=== PATIENT | female | born 1945 | race Caucasian/White ===

== ENCOUNTER → 2021-11-05 09:13 | Outpatient (REF) | payer MEDICARE, SELFPAY | LOC: ANHLAB 09:13 | PROVIDERS: PCP Internal Medicine; Visit Provider Nurse Practitioner | DX: C44.321 Squamous cell carcinoma of skin of nose (principal) | CPT/HCPCS: 88305 ==

== ENCOUNTER → 2021-12-14 07:01 | Outpatient (REF) | payer MEDICARE, SELFPAY | LOC: ANHLAB 07:01 | PROVIDERS: PCP Internal Medicine; Visit Provider Nurse Practitioner | DX: C44.321 Squamous cell carcinoma of skin of nose (principal); L90.5 Scar conditions and fibrosis of skin | CPT/HCPCS: 88305; 88331 ==

== ENCOUNTER 2022-08-16 09:00 | Outpatient (NON) | payer MEDICARE, SELFPAY | END 2022-08-16 09:01 | disposition home or self-care (01) | LOC: ANHLAB 08-18 10:52 | PROVIDERS: PCP Internal Medicine; Visit Provider Nurse Practitioner | DX: D49.2 Neoplasm of unspecified behavior of bone, soft tissue, and skin (principal) | CPT/HCPCS: 88305 ==

== ENCOUNTER 2024-10-16 16:09 | Outpatient (CLI) | payer MEDICARE, SELFPAY ==
--- NOTE | ~2024-10-16 | CT_ITS ---
EXAMINATION: CT sinus wo con DATE: 10/16/2024 16:35 INDICATION: Sinus polyps TECHNIQUE: Computed tomography (CT) of the paranasal sinuses was performed without intravenous contra st. The dose-length product was 299.51 mGy-cm.. Automated exposure control and iterative reconstructi on technique were employed. COMPARISON: None FINDINGS: There is cortical thickening of the left zygomatic arch, left maxillary sinus and inferior margin of the left orbit with associated surgical changes. These may represent posttraumatic change, although other considerations such as Paget's disease are considered. There is soft tissue opacificat ion of the left frontal, ethmoid and maxillary sinuses. The left ostiomeatal unit is not well visuali zed which may be postsurgical or related to erosive destruction. There is mild mucosal thickening of the right sphenoid sinus. Mastoids are pneumatized. IMPRESSION: 1. Moderate mucosal thickening of the left frontal, ethmoid, maxillary and right sphenoid sinuses wit h polypoid soft tissue involving the ethmoid sinus. Findings suggest chronic sinusitis with possible underlying polyps. 2: Ostiomeatal unit on the left is not well visualized, possibly postsurgical or related to erosive destruction. 3: Cortical thickening with increased trabeculation involving the left orbit, maxillary sinus and zyg omatic arch. Differential diagnosis includes postsurgical or posttraumatic change versus chronic infl ammatory change secondary to sinusitis. Differential diagnosis includes Paget's disease. Reviewed, dictated and finalized at location A. IMPRESSION: 1. Moderate mucosal thickening of the left frontal, ethmoid, maxillary and righ t sphenoid sinuses with polypoid soft tissue involving the ethmoid sinus. Findi ngs suggest chronic sinusitis with possible underlying polyps. 2: Ostiomeatal unit on the left is not well visualized, possibly postsurgical or related to erosive destruction. 3: Cortical thickening with increased trabeculation involving the left orbit, m axillary sinus and zygomatic arch. Differential diagnosis includes postsurgical or posttraumatic change versus chronic inflammatory change secondary to sinusi tis. Differential diagnosis includes Paget's disease.
--- OUTSIDE RECORDS SUMMARY | 2024-10-16 18:30 | XMS_ITS | Continuity of Care Document ---
Author Organization [facility] Address [address] [place] [address] Phone Care Team Providers Care First Breaker Feeder Name Role Phone Pagan OD, Olvin Unavailable Unavailable Procedures Procedure Date Eye Exam, New Patient Refraction BF Plastic Sphcyl T[place]ord To +/-4d .12-2d Frames Deluxe Tax - Medical Advance Directives Directive Yes / No Effective Date File Name No Information Encounters Encounter Description Practice Location Reason(s) For Visit Diagnoses Date Provider Providers Copied on Encounter [facility], [address] [place] [address] [address], [place], [place], [id number], [place] tel:[phone] [facility] No Information Feb-0 4-200 9 Pagan OD Olvin. [address] [place] [address] , [address], [place], [address], [place]. tel:[phone] [facility], [address] [place] [address] [address], [place], [place], [id number], [place] tel:[phone] [facility] No Information Feb-0 4200 9 [facility] . [address], [address], [place], [place], [id number], [place]. tel:[phone] Referring Provider: Olvin Pagan OD [facility], [address] [place] [address] [address], [place], [address]. tel:[phone] sulting Provider: Reji Mcdaniels, [address] [place] [address], [place], [address]. tel:[phone] Family History Family Member Type Diagnosis Age At Onset No Information Payers Payer name Insurance type Covered constitution party ID Authoriza tion(s) No Information Social History Type Description Quantity Date Captured Comments Sex Female Smoking Status No Information Chief Complaint And Reason For Visit No Information Reason For Referral Reason For Referral No Information History Of Present Illness Encounter Date Complaint History Of Prese nt Illness No Information Functional Status Date Functional Assessmen t No Information Instructions Date Instruction Additional Infor mation No Information Assessments Type Assessment Date No Information Patient Care Teams Name Effective Dates (start - stop) Status Members No Information
--- OUTSIDE RECORDS SUMMARY | 2024-10-16 18:30 | XMS_ITS | CONTINUITY OF CARE DOCUMENT ---
Author Name latricia rome Address Unknown Organization [facility] Address [address] [place] [address] Phone [phone] Care Team Providers Care Tetryl Dissolver Operator Name Role Phone Mac MACKEY, Bruno Unavailable [phone] Malick Morales MD Unavailable [phone] Ariel Hong MD Unavailable [phone] PROBLEMS Condition Status Date Provider Notes CHEST PAIN- NORMAL STRESS TEST active Jose Felder MD GERD active Roc Felder MD TOBACCO ABUSE QUIT RECENTLY active Roc reeves MD Ischemia, transient cerebral NOS active Chan Watts MD Chest pain-type to be determined active Chan Watst MD HTN essential active Bruno Watts MD Hyperlipidemia active Bruno Watts MD Hypertension active Bruno Watts MD Carotid artery stenosis active Vickie sánchez [employer] ENCOUNTERS Date Type Provider Location Encounter Diag nosis 1 - 1 In-person encounter Office Visit Bruno Watts MD [facility] Carotid artery stenosis 9 - 9 In-person encounter Office Visit Bruno Watts MD [facility] Ischemia, transient cerebral NOSChest pain-type to be determinedHTN essentialHyperlipidemiaHypertension 3 - 4 In-person encounter Office Visit Roc Felder MD [facility] CHEST PAIN- NORMAL STRESS TESTGERDTOBACCO ABUSE QUIT RECENTLY VITAL SIGNS Date Observation Value Provider Body Mass Index (Ratio) 27.46 kg/m2 Nile Watts MD blood pressure, diastolic 70 mm[Hg] Raad walsh Atkins blood pressure, systolic 134 mm[Hg] Matilde baum [place] oxygen saturation, oximetry 80 % Shereen [place] pulse rate 71 /[facility] E&M 12 /min [facility] weight E&M 160 [lb_av] [facility] height E&M 64 [in_i] [facility] blood pressure, cuff size large An nico [place] Body Mass Index (Ratio) 18.40 kg/m2 Nile Watts MD blood pressure, diastolic 80 mm[Hg] nkLog blood pressure, systolic 129 mm[Hg] [facility] E&M 16 /min [facility] pulse rate 56 /min [facility] blood pressure, cuff size regular [facility] blood pressure, diastolic 80 mm[Hg] [facility] blood pressure, systolic 129 mm[Hg] [facility] weight E&M 107.2 [lb_av] [facility] height E&M 64 [in_i] [facility] Body Mass Index (Ratio) 19.36 kg/m2 Flo Munoz blood pressure, diastolic, left arm 80 mm [Hg] Marcellus Munoz blood pressure, systolic, left arm 141 mm [Hg] Marcellus Munoz blood pressure, diastolic, right arm 79 m m[Hg] Marcellus Munoz blood pressure, systolic, right arm 129 m m[Hg] Marcellus Munoz blood pressure, diastolic 80 mm[Hg] Bernabe blood pressure, systolic 141 mm[Hg] Alex zambrano Tammy pulse rate 64 /min Marcellus Tammy oxygen saturation, oximetry 98 % Marcellus Munoz respiratory rate E&M 16 /min Marcellus Munoz weight E&M 112.38 [lb_av] Alexsrinivasraad Lernerr an height E&M 64 [in_i] Marcellus Munoz ALLERGIES No Known Drug Allergies HISTORY OF MEDICATION USE Medication Status Instructions Dates Provider Indications Com ments aspirin 81 mg tablet,delayed release (DR/EC) active Bruno Watts MD FeroSul 325 mg (65 mg iron) tablet active TAKE 1 TABLET BY MOUTH ONCE DAILY [facility] mirtazapine 30 mg tablet active TAKE 1 TABLET BY MOUTH ONCE DAILY AT BEDTIME [facility] amitriptyline 25 mg tablet active Take 1 tablet once a day [facility] hydroxyzine HCl 10 mg tablet active Take 1 tablet once a day [facility] gabapentin 300 mg capsule active Take 1 capsule by mouth three times a day [facility] olmesartan 5 mg tablet active 1 tab daily. [facility] pantoprazole 40 mg tablet,delayed release (DR/EC) active TAKE 1 TABLET BY MOUTH EVERY DAY [facility] simvastatin 40 mg tablet active TAKE 1 TABLET AT BEDTIME [facility] omeprazole 20 mg tablet,delayed release (DR/EC) active 1 tablet once a day as needed 3 Pamela Alvarez ULTRAM TABLET completed 1 tablet once a day 3 - 9 Pamela Alvarez SOCIAL HISTORY Date Observation Value Provider Underweight no Bruno Leija personal history of marijuana use no Vickie Ventimiglia [facility] drug use no Vickie Ventimig nae [facility] alcohol use no Vickie Ventimig nae [facility] passive cigarette sm aneta exposure no Vickie Ventimiglia [facility] smoking, year quit 2020 Vickie Ve ntimiglia [facility] smoking history, tot al pack/year 21 Vickie Wilhelm [facility] cigarette use yes Vickie bishop [facility] smoking status Former smoker Vickie sánchez [facility] Underweight yes Bruno Woo Cristi smoking, year quit 2020 Pamela Mukund uiz cigarette use yes Pamela Alvarez drug use none Pamela Alvarez alcohol use no Pamela Alvarez passive cigarette sm aneta exposure no Pamela Alvarez smoking status Former smoker Pamela Estradaiz social history E&M Marital Status: Julien leija Roc Felder MD social history reviewed E&M reviewed Roc Felder MD drug use none Roc Felder MD passive cigarette sm aneta exposure no Marcellus Munoz smoking history, tot al pack/year Marcellus Munoz smoking, year quit 01/2013 Marcellus davidson smoking status former smoker Marcellus conteh MENTAL STATUS Date Observation Value Provider assessment of judgme nt and insight E&M Alert and oriented to time, place and person. Mood and affect are normal. Roc Felder MD INSURANCE PROVIDERS Payer name Policy type / Coverage type [place] red constitution party ID [employer] MEDICARE PREMIER ADVANTRA PPO Commercial i nsurance [employer] [id number] ADVANCE DIRECTIVES Name Date DISCUSSED - NO DECISION MADE TREATMENT PLAN Date Name Performer Cardiology: H er updated medication list for this problem includes: Aspirin 81 Mg Tablet,delayed Release (dr/ec) (Aspirin) Vickie Wilhelm [facility] Cardiology:will upda te lipid panel c hange to crestor if not at goal H er updated medication list for this problem includes: Simvastatin 40 Mg Tablet (Simvastatin) ..... Take 1 tablet at bedtime Vickie Reyesdharmeshcarmita [facility] Cardiology:BP elevat ed on arrival but improved W ill have her monitor at home c an increase olmesartan if needed. H er updated medication list for this problem includes: Aspirin 81 Mg Tablet,delayed Release (dr/ec) (Aspirin) Olmesartan 5 Mg Tablet (Olmesartan) ..... 1 tab daily. Vickietammy Wilhelm [facility] Cardiology:carotid d uplex in 2021 showed 50-69% TAWANNA stenosis and <50% LICA W ill update in setting of TIA history Vickietammy Reyescarmita [facility] Cardiology:She has h ad no further episodes of chest pain. 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 1 tab daily as needed BP today: 141/80 Prior BP: / () D iscussed lifestyle modifications, diet, antacids/medications, and preventive measures. Handout provided. Roc Felder MD [facility] FOLLOW UP: B P today: 141/80 Prior BP: / () N uclear Stress Findings: No scintigraphic evidence of stress induced ischemia or wall motion abnormality. Left ventricular ejection fraction is 69% which is within normal limits. - [facility] (01/31/2013) Roc Felder MD Date Name LIPID PANEL Carotid Duplex Bilat eral Stress Regadenoson Complete Echo HISTORY OF PROCEDURES Procedure Date Procedure Name Provider Procedure Notes S tatus EKG Bruno Watts MD complete d
== END 2024-10-16 16:10 | disposition home or self-care (01) ==
PROVIDERS: PCP Internal Medicine; Visit Provider Otolaryngology Otolaryngology/Facial Plastic Surgery
DX: J34.2 Deviated nasal septum (principal); J33.1 Polypoid sinus degeneration; J32.8 Other chronic sinusitis; J34.89 Other specified disorders of nose and nasal sinuses; J33.8 Other polyp of sinus
CPT/HCPCS: 70486

== ENCOUNTER 2025-01-01 12:13 | Outpatient (CLI) | payer MEDICARE, SELFPAY ==
--- NOTE | 2025-01-01 12:20 | ECG_ITS ---
Test Date: 2025-01-01 12:47:09 Measurements Intervals [place] Rate: 60 P: 60 IN: 124 QRS: -17 QRSD: 94 T: 54 QT: 406 QTc: 408 Interpretive Statements SINUS RHYTHM BASELINE ARTIFACT- I, II, III, AVR, AVL, AVF, V1-V6 NORMAL ECG No previous ECG available for comparison Electronically Signed On 01-01-2025 12:49:43 CDT by Josef Sow D.O.
[2025-01-01 13:00] LABS: Hematocrit 31.3 % (37.0-47.0); Hemoglobin 9.6 g/dL (12.0-15.0)
--- OUTSIDE RECORDS SUMMARY | 2025-01-01 13:10 | XMS_ITS | CONTINUITY OF CARE DOCUMENT ---
Author Name latricia rome Address Unknown Organization [facility] Address [address] [place] [address] Phone [phone] Care Team Providers Care Preventive Maintenance Engineer Name Role Phone Mac MACKEY, Bruno Unavailable [phone] Malick Morales MD Unavailable Ariel Hong MD Unavailable [phone] PROBLEMS Condition Status Date Provider Notes CHEST PAIN- NORMAL STRESS TEST active Jose Felder MD GERD active Roc Felder MD TOBACCO ABUSE QUIT RECENTLY active Roc reeves MD Ischemia, transient cerebral NOS active Chan Watts MD Chest pain-type to be determined active Chan Watts MD HTN essential active Bruno Watts MD Hyperlipidemia active Bruno Watts MD Hypertension active Bruno Watts MD Carotid artery stenosis active Vickie sánchez [facility] Date Type Provider Location Encounter Diag nosis 2 - 2 In-person encounter Office Visit Bruno Watts MD [place] [facility] 1 - 1 In-person encounter Office Visit Bruno Watts MD [place] [facility] Carotid artery stenosis 9 - 9 In-person encounter Office Visit Bruno Watts MD [place] [facility] Ischemia, transient cerebral NOSChest pain-type to be determinedHTN essentialHyperlipidemiaHypertension 3 - 4 In-person encounter Office Visit Roc Felder MD [place] [facility] CHEST PAIN- NORMAL STRESS TESTGERDTOBACCO ABUSE QUIT RECENTLY VITAL SIGNS Date Observation Value Provider Body Mass Index (Ratio) 18.19 kg/m2 Nile Watts MD blood pressure, cuff size regular Ke rri Huey blood pressure, diastolic 80 mm[Hg] Ke rri Huey blood pressure, systolic 146 mm[Hg] Mary Anne ri Huey oxygen saturation, oximetry 97 % Darleen Huey pulse rate 64 /min Darleen Jaylin [facility] weight E&M 106 [lb_av] Darleen Jaylin [facility] height E&M 64 [in_i] Darleen Jaylin [facility] Body Mass Index (Ratio) 27.46 kg/m2 Nile Watts MD blood pressure, diastolic 70 mm[Hg] Raad walsh Atkins blood pressure, systolic 134 mm[Hg] [facility], [facility] 80 % Shereen Reading pulse rate 71 /min [facility] rate E&M 12 /min [facility] weight E&M 160 [lb_av] [facility] height E&M 64 [in_i] [facility] blood pressure, cuff size large An nico Reading Body Mass Index (Ratio) 18.40 kg/m2 Nile Watts MD blood pressure, diastolic 80 mm[Hg] Betzaida salazarLogbrandyn blood pressure, systolic 129 mm[Hg] Mariaa Owensogbrandyn respiratory rate E&M 16 /min Pamela Alvarez pulse rate 56 /min Pamela Alvarez blood pressure, cuff size regular Betzaida Alvarez blood pressure, diastolic 80 mm[Hg] Betzaida Alvarez blood pressure, systolic 129 mm[Hg] Latanya Alvarez weight E&M 107.2 [lb_av] Pamela Ruiz height E&M 64 [in_i] [facility] Body Mass Index (Ratio) 19.36 kg/m2 Flo Munoz blood pressure, diastolic, left arm 80 mm [Hg] [facility], systolic, left arm 141 mm [Hg] [facility] blood pressure, diastolic, right arm 79 m m[Hg] Alexraad Munoz blood pressure, systolic, right arm 129 m m[Hg] Alexraad Munoz blood pressure, diastolic 80 mm[Hg] Bernabe blood pressure, systolic 141 mm[Hg] Alex Munoz pulse rate 64 /min [facility] oxygen saturation, oximetry 98 % [facility] respiratory rate E&M 16 /min Alexraad Munoz weight E&M 112.38 [lb_av] [facility] E&M 64 [in_i] [facility] ALLERGIES No Known Drug Allergies HISTORY OF MEDICATION USE Medication Status Instructions Dates Provider Indications Com ments aspirin 81 mg tablet,delayed release (DR/EC) active TAKE 1 TABLET BY MOUTH EVERY DAY Darleen Arzate FeroSul 325 mg (65 mg iron) tablet active TAKE 1 TABLET BY MOUTH ONCE DAILY Pamela Antonio mirtazapine 30 mg tablet active TAKE 1 TABLET BY MOUTH ONCE DAILY AT BEDTIME Pamela Alvarez amitriptyline 25 mg tablet active Take 1 tablet once a day Pamela Alvarez hydroxyzine HCl 10 mg tablet active Take 1 tablet once a day Pamela Antonio gabapentin 300 mg capsule active Take 1 capsule by mouth three times a day Pamela Antonio olmesartan 5 mg tablet active 1 tab daily. Pamela Ruiz pantoprazole 40 mg tablet,delayed release (DR/EC) active TAKE 1 TABLET BY MOUTH EVERY DAY Pamela Alvarez simvastatin 40 mg tablet active TAKE 1 TABLET AT BEDTIME Pamela Alvarez omeprazole 20 mg tablet,delayed release (DR/EC) active 1 tablet once a day as needed Pamela Alvarez ULTRAM TABLET completed 1 tablet once a day - Pamela Alvarez SOCIAL HISTORY Date Observation Value Provider Underweight yes Bruno Leija personal history of marijuana use no Bruno Watts MD drug use no Bruno Leija alcohol use no Bruno Leija passive cigarette sm aneta exposure no Bruno Watts MD smoking, year quit 2020 Bruno mata MD smoking history, tot al pack/year Bruno Watts MD cigarette use yes Bruno Watts MD smoking status Former smoker Bruno chiu MD Surgical History of Back Surgery Surgical History of Back Surgery Bruno Watts MD Underweight no Bruno Leija personal history of marijuana use no Vickietammy Crandallmiglia [facility] drug use no Vickie Ventimig nae [facility] alcohol use no Vickie Ventimig nae [facility] passive cigarette sm aneta exposure no Vickie Ventimiglia [facility] smoking, year quit 2020 Vickie Ve ntimiglia [facility] smoking history, tot al pack/year Vickie Ventimiglia [facility] cigarette use yes Vickie Ventimi glia [facility] smoking status Former smoker Vickie Venti miglia [facility] Underweight yes Bruno Leija smoking, year quit 2020 Pamela guy cigarette use yes Pamela Alvarez drug use none Pamela Alvarez alcohol use no Pamela Alvarez passive cigarette sm aneta exposure no Pamela Alvarez smoking status Former smoker Pamela Alvarez social history E&M Marital Status: Julien leija Roc Felder MD social history reviewed E&M reviewed Roc Felder MD drug use none Roc Felder MD passive cigarette sm aneta exposure no Alexsrinivasraad Munoz smoking history, tot al pack/year 21 Marcellus Munoz smoking, year quit 01/2013 Marcellus davidson smoking status former smoker Alexsrinivasraad conteh MENTAL STATUS Date Observation Value Provider assessment of judgme nt and insight E&M Alert and oriented to time, place and person. Mood and affect are normal. Roc Felder MD INSURANCE PROVIDERS Payer name Policy type / Coverage type [facility] libertarian ID [employer] PPO O [id number] ADVANCE DIRECTIVES Name Date DISCUSSED - NO DECISION MADE TREATMENT PLAN Date Name Performer Cardiology Bruno Watts MD Cardiology: C ontrolled Bruno Watts MD Cardiology:Normal carotid duplex Bruno Watts MD Cardiology:11/13/24 S tress test with small apical defect, likely artifact. Patient feels well. No need for invasive eval. 08/14/24 S he has had no further episodes of chest pain. 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 H er stress test showed a small reversible defect, but will manage medically at this time as patient asymptomatic P atient voiced understanding of results w ill plan for updated labs H er updated medication list for this problem includes: Aspirin 81 Mg Tablet,delayed Release (dr/ec) (Aspirin) Bruno Watts MD Cardiology: H er updated medication list for this problem includes: Aspirin 81 Mg Tablet,delayed Release (dr/ec) (Aspirin) Vickie ARELLANO Cardiology:will upda te lipid panel c hange to crestor if not at goal H er updated medication list for this problem includes: Simvastatin 40 Mg Tablet (Simvastatin) ..... Take 1 tablet at bedtime Vickietammy Wilhelm [facility] Cardiology:BP elevat ed on arrival but improved W ill have her monitor at home c an increase olmesartan if needed. H er updated medication list for this problem includes: Aspirin 81 Mg Tablet,delayed Release (dr/ec) (Aspirin) Olmesartan 5 Mg Tablet (Olmesartan) ..... 1 tab daily. Vickietammy Reyescarmita [facility] Cardiology:carotid d uplex in 2021 showed 50-69% TAWANNA stenosis and <50% LICA W ill update in setting of TIA history [facility] Cardiology:She has h ad no further episodes of chest pain. 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 - [facility] (01/31/2013) Roc Felder MD Date Name LIPID PANEL Carotid Duplex Bilat eral Stress Regadenoson Complete Echo HISTORY OF PROCEDURES Procedure Date Procedure Name Provider Procedure Notes S tatus EKG Bruno Watts MD complete d
--- OUTSIDE RECORDS SUMMARY | 2025-01-01 13:10 | XMS_ITS | Continuity of Care Document ---
Author Organization [facility] Address [address] [place] [address] Phone Care Team Providers Care Basting Puller Name Role Phone Pagan OD, Olvin Unavailable Unavailable Procedures Procedure Date Eye Exam, New Patient Refraction BF Plastic Sphcyl [place] To +/-4d .12-2d Frames Deluxe Tax - Medical Advance Directives Directive Yes / No Effective Date File Name No Information Encounters Encounter Description Practice Location Reason(s) For Visit Diagnoses Date Provider Providers Copied on Encounter [facility], [address] [place] [address] [address], [place], [place], [id number], [place] tel:[phone] [facility] No Information Feb-0 4-200 9 Pagan OD Olvin. [address] [place] [address] , [address], [place], [address], [place]. tel:[phone] [facility], [address] [place] [address] [address], [place], [place], [id number], [place] tel:[phone] [facility] No Information Feb-0 200 9 [facility] . [address], [address], [place], [place], [id number], [place]. tel:[phone] Referring Provider: Olvin Pagan OD [facility], [address] [place] [address] [address], [place], [address]. tel:[phone] sulting Provider: Reji Mcdaniels, [address] [place] [address], [place], [address]. tel:[phone] Family History Family Member Type Diagnosis Age At Onset No Information Payers Payer name Insurance type Covered libertarian ID Authoriza tion(s) No Information Social History [...]
--- OUTSIDE RECORDS SUMMARY | 2025-01-01 13:10 | XMS_ITS | Data Portability ---
Author Organization [place] [facility], Main Office Address [address] [place] [address] Assessment Encounter Date Assessment Date Assessment LastModified by Organization Details LastModified Time 08/13/2024 08/13/2024 This note is dictated and transcribed by [employer]. Clinician Oncology variances may occur. Despite proofreading, typographical errors may occur. Occasional wrong-word or 'cqdlr-[id number]' substitutions may have occurred due to the inherent limitations of voice recording. Read the chart carefully and recognize, using context, where substitutions have occurred. Not available 08/13/2024 15:47:57 08/23/2024 08/23/2024 This note is dictated and transcribed by [employer]. Clinician Oncology variances may occur. Despite proofreading, typographical errors may occur. Occasional wrong-word or 'ktvqq-p-tasq' substitutions may have occurred due to the inherent limitations of voice recording. Read the chart carefully and recognize, using context, where substitutions have occurred. Not available 08/23/2024 15:18:17 09/12/2024 09/12/2024 This note is dictated and transcribed by [employer]. Clinician Oncology variances may occur. Despite proofreading, typographical errors may occur. Occasional wrong-word or 'byjuc-e-hsls' substitutions may have occurred due to the inherent limitations of voice recording. Read the chart carefully and recognize, using context, where substitutions have occurred. Not available 09/12/2024 15:52:51 Plan of Treatment Reminders Order Date Submit Date Provider Last Modified By Organization Details Last Modified Time Details Appointments Establish ed Patient 15 2024 01:00P M Ariel Hong MD Not available Not available Not available Lab None recorded. Referral None recorded. Procedures None recorded. Surgeries None recorded. Imaging None recorded. Medication Orders ketoconaz ole 2 % topical cream 2024 025 [facility], [address] [place] [address], [id number], 09/12/2024 15:53:36 triamcino lone acetonide 0.1 % topical cream 2024 025 [facility], [address] [place] [address], [id number], 08/29/2024 15:15:05 Patient TargetsNo targets recorded. Patient Instructions Encounter Date Encounter Id Patient Instructions Last Modified By Organization Details Last Modified Time 08/23/2024 [id number] paronychia: care instructions Not available 08/23/2024 15:18:56 Reason for Referral None Reported. Results Created Date Observation Date Name Description Value Unit Range Abnormal Flag Note LastModifiedBy Organization Detail LastModifiedTime 10/02/1910/01/2024 LIPID PANEL cholesterol 128 mg/dL 140-19 9 low [facility] NS[facility] RECOM MENDA TION FOR DARLIN STERO L: ADULT CHILD LOW RISK: <200 <170 BORDE RLINE : <200- 239 ----- HIGH RISK: >240 >200 Not Available [facility] (Lab) [address] [place], [address], 10/01/2024 15:05:21 10/02/19 25 10/01/2024 LIPID PANEL triglyceride s 36 mg/dL 0-150 [facility] NSUS REPOR T RECOM MENDA TION FOR TRIGL YCERI MARTA: ADULT CHILD LOW RISK: <150 ----- BODER LINE: 150-1 99 ----- HIGH RISK: >200 ----- Not Available [facility] (Lab) [address] [place], [address], 10/01/2024 15:05:21 10/02/19 25 10/01/2024 LIPID PANEL HDL cholesterol 86 mg/dL 40- Not Available [facility] (Lab) [address] [place], [address], 10/01/2024 15:05:21 10/02/1910/01/2024 LIPID PANEL LDL cholesterol, calculated 35 mg/dL 0-130 [facility] NS[facility] REPOR T RECOM MENDA TIONS FOR LDL: ADULT CHILD LOW RISK <130 <110 (OPTI MAL LDL) <100 ----- BORDE RLINE : 130-1 59 ----- HIGH RISK: >160 >130 A TRIGL YCERI DE RESUL T >400 INVAL IDATE S THE CALCU LATIO N FOR LDL FRACT IONAT ION - THE LDL RESUL T WILL NOT BE REPOR ENE. Not Available [facility] (Lab) [address] [place], [address], 10/01/2024 15:05:21 10/02/19 25 10/01/2024 COMPR EHENS NICANOR METAB OLIC PANEL sodium 136 mmol/ L 137-14 5 low Not Available [facility] (Lab) [address] [place], [address], 10/01/2024 15:05:37 10/02/19 25 10/01/2024 COMPR EHENS NICANOR METAB OLIC PANEL potassium 4.2 mmol/ L 3.5-5. 1 Not Available [facility] (Lab) [address] [place], [address], 10/01/2024 15:05:37 10/02/19 25 10/01/2024 COMPR EHENS NICANOR METAB OLIC PANEL chloride 107 mmol/ L 98-107 Not Available [facility] (Lab) [address] [place], [address], 10/01/2024 15:05:37 10/02/19 25 10/01/2024 COMPR EHENS NICANOR METAB OLIC PANEL carbon dioxide 27 mmol/ L 22-30 Not Available [facility] (Lab) [address] [place], [address], 10/01/2024 15:05:37 10/02/19 25 10/01/2024 COMPR EHENS NICANOR METAB OLIC PANEL anion gap 6.2 mmol/ L 14-22 low Not Available [facility] (Lab) [address] [place], [address], 10/01/2024 15:05:37 10/02/19 25 10/01/2024 COMPR EHENS NICANOR METAB OLIC PANEL glucose 49 mg/dL 70-99 low Not Available [facility] (Lab) [address] [place], [address], 10/01/2024 15:05:37 10/02/19 25 10/01/2024 COMPR EHENS NICANOR METAB OLIC PANEL BUN 29 mg/dL 8-19 high Not Available [facility] (Lab) [address] [place], [address], 10/01/2024 15:05:37 10/02/19 25 10/01/2024 COMPR EHENS NICANOR METAB OLIC PANEL creatinine 0.85 mg/dL 0.66-1 .25 Not Available [facility] (Lab) [address] [place], [address], 10/01/2024 15:05:37 10/02/19 25 10/01/2024 COMPR EHENS NICANOR METAB OLIC PANEL GFR >60 Refer ence Range : [place] [facility] GFR Healt hy Adult : >60 mL/mi n/1.7 3 m2 Chron ic Kidne y Disea se: 15-60 mL/mi n/1.7 3 m2 Kidne y Failu re: <15/m L/min /1.73 m2 www.n iddk. nih.g ov The MDRD study equat ion has not been valid ated in child quiana <18 years of age; pregn ant women ; the elder ly >85 years of age; or in some racia l or ethni c subgr oups, such as Hispa nics. Outsi de the valid ated ravinder eters , estim ated GFR is less accur ate, requi ring clini ceci judgm ent on a case- by-ca se basis . Clini ceci inter preta tion for other races and ages must be made by the clini jose. The MDRD study equat ion has not been valid ated for the evalu ation of serum creat inine relat ed to nutri el l statu s or medic ation usage . For perso ns <18 years of age, a pedia tric GFR calcu lator is avail able on the [facility] websi te: https :[email or web address] w.linda hydey.o rg/pr ofess ional s/kdo qi/gf r_cal culat or Not Available [facility] (Lab) [address] [place], [address], 10/01/2024 15:05:37 10/02/19 25 10/01/2024 COMPR EHENS NICANOR METAB OLIC PANEL alkaline phosphatase 56 U/L 38-126 Not Available [facility] (Lab) [address] [place], [address], 10/01/2024 15:05:37 10/02/19 25 10/01/2024 COMPR EHENS NICANOR METAB OLIC PANEL alanine aminotransfe rase 25 U/L 0-35 Not Available [facility] (Lab) [address] [place], [address], 10/01/2024 15:05:37 10/02/19 25 10/01/2024 COMPR EHENS NICANOR METAB OLIC PANEL aspartate aminotransfe rase 25 U/L 15-37 Not Available [facility] (Lab) [address] [place], [address], 10/01/2024 15:05:37 10/02/19 25 10/01/2024 COMPR EHENS NICANOR METAB OLIC PANEL bilirubin, total 0.40 mg/dL 0.20-1 .30 Not Available [facility] (Lab) [address] [place], [address], 10/01/2024 15:05:37 10/02/19 25 10/01/2024 COMPR EHENS NICANOR METAB OLIC PANEL calcium 8.9 mg/dL 8.4-10 .2 Not Available [facility] (Lab) [address] [place], [address], 10/01/2024 15:05:37 10/02/19 25 10/01/2024 COMPR EHENS NICANOR METAB OLIC PANEL total protein 6.3 g/dL 6.3-8. 2 Not Available [facility] (Lab) [address] [place], [address], 10/01/2024 15:05:37 10/02/19 25 10/01/2024 COMPR EHENS NICANOR METAB OLIC PANEL albumin 4.0 g/dL 3.0-4. 4 Not Available [facility] (Lab) [address] [place], [address], 10/01/2024 15:05:37 10/02/19 25 10/01/2024 COMPR EHENS NICANOR METAB OLIC PANEL globulin 2.3 g/dL 2.6-4. 2 low Not Available [facility] (Lab) [address] [place], [address], 10/01/2024 15:05:37 10/02/19 25 10/01/2024 COMPR EHENS NICANOR METAB OLIC PANEL A/G ratio 1.7 ratio 1.0-2. 0 Not Available [facility] (Lab) [address] [place], [address], 10/01/2024 15:05:37 10/02/19 25 10/01/2024 VITAM IN D 25-HY DROXY vd25oh 43.8 NG/mL 30-100 Vitam in D Statu s: Defic ient: <20 ng/mL Insuf ficie nt: 20-29 ng/mL Suffi cient : 30-10 0 ng/mL Not Available [facility] (Lab) [address] [place], [address], 10/01/2024 15:46:33 10/03/19 25 10/01/2024 LDCT, chest , for lung cristian r cinthya lobo [facility] [address] [place] [address] [phone] Patijaneen t Name: JEZ HOLLOWAY Access ion #: [id number] Sex: F : 1945 3 Locati on: [facility] Attend ing Physic roberth: NICHOLAS HONG ER Orderi ng Physic roberth: NICHOLAS HONG ER Exam Date: 025 12:38 PM Exam Name: CT LOW DOSE CNCR SCREEN ING Admitt ing Diagno sis(es ): RADIOL OGY REPORT - FINAL EXAM: CT LOW DOSE CNCR SCREEN ING HISTOR Y: cigare tte smoker 79-yea r-old female with lung cancer screen ing, former smoker . COMPAR MARLENA: CT scan of the chest dated 2022. TECHNI QUE: Noncon trast helica l CT images of the chest were perfor med utiliz ing low dose lung cancer screen ing protoc ol. Sagitt al and golden l reform atted images were obtain ed. This CT exam was perfor med using one or more of the follow ing dose reduct ion techni ques: Automa ene exposu re contro l, adjust ment of the mA and/or kV accord ing to patien t size, or use of iterat nicanor recons tructi on techni que. Radiat ion Dose Inform ation: CT Dose: CTDI volume is 1 mGy. Dose-l ength produc t is 32.9 mGy*cm . Page 1 of 3 [facility] Patijaneen t Name: JEZ HOLLOWAY Access ion #: [id number] Sex: F : 1945 3 Exam Date: 025 12:38 PM Exam Name: CT LOW DOSE CNCR SCREEN ING Admitt ing Diagno sis(es ): FINDIN GS: There are bilate ral upper lobe 2-3 mm noncal cified pulmon brittany nodule s, stable . No new noncal cified pulmon brittany nodule s are identi fied here. There is scarri ng in the bilate ral lung bases. No consol idativ e infilt rates, pneumo thorax , pleura l effusi ons, or pulmon brittany edema. No suspic ious medias tinal or axilla ry adenop athy. The heart is enlarg ed. There are golden ry artery calcif icatio ns. No thorac ic aortic aneury sm. There is border line ectasi a of the centra l pulmon brittany arteri es. There are chunky calcif icatio ns near the spleni c hilum which may be due to partia lly calcif ied spleni c artery aneury sm or calcif icatio ns of the pancre atic tail. There is a chroni c superi or endpla te compre ssion fractu re of T11. There is a chroni c inferi or endpla te compre ssion fractu re of T5. There is advanc ed thorac ic degene rative disc diseas e. There is mild thorac ic levosc oliosi s. IMPRES SHELIA: 1. Bilate ral upper lobe subcen timete r noncal cified pulmon brittany nodule s are stable . 2. Cardio megaly and golden ry artery diseas e. 3. No acute intrat horaci c proces s is otherw ise identi fied here. Lung-R ADS 2. Benign . Contin ue annual screen ing with LDCT in 12 months . Lung-R ADS v2022. Create d and electr onical ly signed by: Tony rodriguez MD Signed Date: 10:50 AM (CT) Dictat ed by: Tony rodriguez MD Page 2 of 3 [facility] Name: JEZ HOLLOWAY Access ion #: [id number] Sex: F : 1945 3 Exam Date: 12:38 PM Exam Name: CT LOW DOSE CNCR SCREEN ING Admitt ing Diagno sis(es ): DD: 025 10:50 AM (CT) DT: 025 10:50 AM (CT) Page 3 of 3 [email or web address] [facility] ([facility]) [address] [place], [address], 10/11/2024 15:29:36 10/03/19 25 09/25/2024 US, duple x, carot id arter y No observ ation record ed. [email or web address] Not Available 15:29:37 Result Notes None recorded. Problems Name Problem SNOMED Code Status Onset Date Resolution Date Notes Provider Name and Address Organization Details Recorded Time Postherpe tic neuralgia 5254002 Active 2021 Not Available [employer] 3 13:30:49 Cerebrova scular accident 046665002 Active 2021 Not Available [employer] 3 13:30:50 Gastroeso phageal reflux disease 434722113 Active 2020 Not Available [employer] 3 13:30:50 Poor short-ter m memory 104924753 Active 2022 Not Available [facility] 3 13:30:50 Adult health examinati on Active 2021 Not Available [facility] 3 13:30:50 Anemia 380866434 Active 2022 Vicky chiu, RMA null, [place] [facility] 3 08:46:18 Eruption 417176586 Active 2022 Not Available [employer] 3 13:30:50 Vitamin D deficienc y 55056284 Active 2020 Not Available [facility] 3 13:30:50 Migraine 11833446 Active 2020 Not Available [facility] 3 13:30:50 Anxiety 28191311 Active 2020 Not Available [facility] 3 13:30:50 Hyperlipi demia 45178527 Active 2021 Not Available [facility] 3 13:30:50 Nicotine dependenc e 74505063 Completed 202001/08/2022 Vicky chiu, RMA null, [place] [facility] 4 08:20:19 Essential hypertens ion 43383140 Active 2021 Not Available [facility] 3 13:30:50 Osteoporo sis 02770888 Active 2020 Not Available [facility] 3 13:30:50 Smoker 66640215 Active 2020 Not Available [facility] 3 13:30:51 Neck pain 92543918 Completed 202106/03/2022 Not Available [facility] 3 13:30:51 Administr ation of influenza vaccine Completed 202101/08/2022 Not Available [facility] 3 13:30:51 Itching of skin 741277566 Completed 202210/04/2022 Vicky chiu, RMA null, [place] [facility] 4 08:15:24 Colorecta l cancer detected by DNA-based stool screening 717791402 Active 2022 Nadine Parker CHARGE RN null, [place] [facility] 3 09:29:15 Nicotine dependenc e 55248062 Active 2022 Vicky chiu RMA null, [place] [facility] 4 08:20:19 Upper respirato ry infection 67351805 Completed 202205/23/2024 Vicky chiu RMA null, [place] [facility] 4 08:20:15 Anterior epistaxis 754687252 Completed 202205/23/2024 Vicky chiu, RMA null, [place] [facility] 4 08:15:46 Feeling of lump in throat 007610131 Completed 202205/23/2024 Vicky chiu RMA null, [place] [facility] 4 08:15:33 Abnormal weight 04436313 Active 2023 Vicky chiu RMA null, [place] [facility] 4 15:38:31 Nausea and vomiting 72018352 Completed 202305/23/2024 Vicky Stdayronbea n, RMA null, [place] [facility] 4 08:20:23 Viral gastroent eritis 094671541 Completed 202305/23/2024 Vicky Moultonbea n, RMA null, [place] [facility] 4 08:20:13 Sinusitis 16432096 Active 2023 Vicky Allison n, RMA null, [place] [facility] 4 08:20:17 Itching of skin 243348412 Active 2023 Vicky chiu RMA null, [place] [facility] 4 08:15:24 Abdominal pain 19881475 Active 2023 Ariel Hong MD [address], [address], [place], [address] , [facility] 4 14:22:23 Constipat ion 81910424 Active 2023 Ariel Hong MD [address], [address], [place], [address] , [facility] 4 14:22:34 Cigarette smoker 83775392 Active 2024 Ariel Hong MD [address], [address], [place], [address] , [facility] 5 15:39:43 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 Procedures Surgical History Date Name Laterality Status Provider Name and Address Organization Details Recorded Time 08/23/19 Toenail avulsion completed Myron Rose DPM [address], [address], [place], [address], [facility] [employer] [facility] 08/23/2024 15:18:08 08/13/19 Nail Debridement completed Myron Rose DPM [address], [address], [place], [address], [facility] [employer] [facility] 08/13/2024 15:47:40 04/13/20 Medicare Wellness CPT Code, subsequent completed Modesta Coon RN [facility] [employer] [facility] 04/13/2023 15:00:20 Hysterectomy completed Not Available [employer] 09/22/2022 13:30:12 Imaging Results None recorded. Procedure Notes None recorded. Medical Equipment None Reported. Allergies No known drug allergies Medications Name Sig Start Date Stop Date Status Note LastModified by Organization Details LastModified Time amoxicill in 500 mg capsule Take 1 capsule every 8 hours by oral route. 02/10 completed Not Available Not Available Not Available atorvasta tin 40 mg tablet Take 1 tablet by mouth once daily 2024 active CHELSEA 08/29/24 NOV 12/31/24 ok to rf Not Available Not Available Not Available Colace 100 mg capsule Take 1 capsule every day by oral route at bedtime. 08/13 completed Not Available Not Available Not Available doxycycli ne hyclate 100 mg capsule TAKE 2 CAPSULES BY MOUTH NOW THEN TAKE 1 CAPSULE ONCE DAILY FOR 20 DAYS STARTING 10 DAYS BEFORE SURGERY active Not Available Not Available No t Available clindamyc in HCl 300 mg capsule TAKE 1 CAPSULE BY MOUTH EVERY 6 HOURS FOR 10 DAYS 10/19 completed Not Available Not Available Not Available ofloxacin 0.3 % eye drops INSTILL 1 DROP INTO RIGHT EYE TWICE DAILY active Not Available Not Available No t Available benzonata te 200 mg capsule TAKE 1 CAPSULE BY MOUTH THREE TIMES DAILY 12/11 completed Not Available Not Available Not Available valacyclo vir 1 gram tablet TAKE 1 TABLET BY MOUTH THREE TIMES DAILY DIRECTED 06/10 completed Not Available Not Available Not Available hydrocodo ne 5 mg-acetam inophen 325 mg tablet TAKE 1 TABLET BY MOUTH EVERY 6 HOURS NEEDED FOR PAIN 06/10 completed Not Available Not Available Not Available alendrona te 70 mg tablet TAKE 1 TABLET BY MOUTH ONCE A WEEK active Not Available Not Available No t Available Zithromax Z-Dangelo 250 mg tablet TAKE 2 TABLETS (500 MG) BY ORAL ROUTE ONCE DAILY FOR 1 DAY THEN 1 TABLET (250 MG) BY ORAL ROUTE ONCE DAILY FOR 4 DAYS 03/21 completed per 12/09/23 patient case Not Available Not Available Not Available clopidogr el 75 mg tablet TAKE 1 TABLET BY MOUTH ONCE DAILY active Not Available Not Available No t Available acyclovir 400 mg tablet TAKE 1 TABLET BY MOUTH TWICE DAILY 2023 active Not Available Not Available Not Avai lable tramadol 50 mg tablet TAKE 1 TABLET BY MOUTH EVERY 6 HOURS NEEDED active Not Available Not Available No t Available triamcino lone acetonide 0.1 % topical cream APPLY CREAM EXTERNAL LY TO AFFECTED AREA TWICE DAILY active Not Available Not Available No t Available simvastat in 40 mg tablet Take 1 tablet by mouth once daily 09/10 completed Not Available Not Available Not Available ketorolac 0.5 % eye drops INSTILL 1 DROP INTO AFFECTED EYE THREE TIMES DAILY STARTING 2 DAYS BEFORE SURGERY, CONTINUE FOR 2 WEEKS AFTER 04/13 completed Not Available Not Available Not Available cyclopent olate 1 % eye drops INSTILL 1 DROP TWICE DAILY INTO AFFECTED EYE BEGINNIN G AFTER SURGERY active Not Available Not Available No t Available triflurid ine 1 % eye drops INSTILL 1 DROP INTO RIGHT EYE EVERY 2 HOURS WHILE AWAKE DIRECTED 04/13 completed Not Available Not Available Not Available famotidin e 20 mg tablet TAKE 1 TABLET BY MOUTH EVERY 12 HOURS FOR 10 DAYS 04/13 completed Not Available Not Available Not Available amitripty line 25 mg tablet TAKE 1 TABLET BY MOUTH ONCE DAILY active Not Available Not Available No t Available prednisol one acetate 1 % eye drops,perez pension INSTILL 1 DROP INTO RIGHT EYE TWICE DAILY active Not Available Not Available No t Available diazepam 2 mg tablet TAKE 1 TABLET BY MOUTH EVERY 8 HOURS NEEDED 08/05 completed Not Available Not Available Not Available pantopraz ole 40 mg tablet,de layed release TAKE 1 TABLET BY MOUTH ONCE DAILY active Not Available Not Available No t Available erythromy aramis 5 mg/gram (0.5 %) eye ointment APPLY BEGINING AFTER SURGERY AT BEDTIME AND CONTINUE FOR 1 WEEK OR UNTIL EMPTY 04/13 completed Not Available Not Available Not Available mirtazapi ne 30 mg tablet TAKE 1 TABLET BY MOUTH ONCE DAILY AT BEDTIME active Not Available Not Available No t Available ferrous sulfate 325 mg (65 mg iron) tablet Take 1 tablet by mouth once daily active Not Available Not Available No t Available brimonidi ne 0.2 % eye drops INSTILL 1 DROP INTO RIGHT EYE TWICE DAILY active Not Available Not Available No t Available gabapenti n 300 mg capsule TAKE 1 CAPSULE BY MOUTH THREE TIMES DAILY active Not Available Not Available No t Available mirtazapi ne 45 mg tablet TAKE 1 TABLET BY MOUTH ONCE DAILY 05/09 completed Not Available Not Available Not Available folic acid 1 mg tablet Take 1 tablet every day by oral route. 08/13 completed Not Available Not Available Not Available dorzolami de 22.3 mg-timolo l 6.8 mg/mL eye drops INSTILL 1 DROP INTO RIGHT EYE TWICE DAILY 08/13 completed Not Available Not Available Not Available mupirocin 2 % topical ointment APPLY A SMALL AMOUNT TOPICALL Y TO THE AFFECTED AREA(S) 3 TIMES DAILY 06/10 completed Not Available Not Available Not Available mirtazapi ne 15 mg tablet TAKE 1 TABLET BY MOUTH ONCE DAILY 12/11 completed Not Available Not Available Not Available gabapenti n 100 mg capsule TAKE 1 CAPSULE BY MOUTH THREE TIMES DAILYN EEDS APPT FOR FURTHER REFILLS* * 05/09 completed Not Available Not Available Not Available ibuprofen 600 mg tablet 06/10 completed Not Available Not Available Not Available methylpre dnisolone 4 mg tablets in a dose pack TAKE BY MOUTH DIRECTED ON INSIDE OF PACKAGE active Not Available Not Available No t Available timolol maleate 0.5 % eye drops INSTILL 1 DROP INTO RIGHT EYE TWICE DAILY active Not Available Not Available No t Available ketoconaz ole 2 % topical cream APPLY TO THE AFFECTED AREA(S) toenails BY TOPICAL ROUTE ONCE DAILY active Not Available Not Available No t Available hydroxyzi ne HCl 10 mg tablet Take 1 tablet by mouth three times daily as needed active Not Available Not Available No t Available fluticaso ne propionat e 50 mcg/actua tion nasal spray,perez pension USE 2 SPRAY(S) IN EACH NOSTRIL ONCE DAILY active Not Available Not Available No t Available naproxen 500 mg tablet TAKE 1 TABLET BY MOUTH TWICE DAILY WITH FOOD 06/10 completed Not Available Not Available Not Available dorzolami de 2 % eye drops INSTILL 1 DROP INTO RIGHT EYE TWICE DAILY active Not Available Not Available No t Available olmesarta n 5 mg tablet Take 1 tablet by mouth once daily active Not Available Not Available No t Available nitrofura ntoin monohydra te/macroc rystals 100 mg capsule TAKE 1 CAPSULE BY MOUTH EVERY 12 HOURS FOR 10 DAYS 06/10 completed Not Available Not Available Not Available Calcium 600 QD active Not Available Not Available Not Available vit E 15 unit-B1 15 mg-B6 12.5 mg-folic acid 1mg-B12-A LA-coQ10 capsule active Not Available Not Available Not Available BinaxNOW COVID-19 Ag Self Test kit Use as Directed on the Package 03/17 completed Not Available Not Available Not Available aspirin 81 mg capsule Take 1 capsule every day by oral route. 2021 active Started per 01/29/22 [facility] discharg e summary Not Available Not Available Not Available Vitals Date Recorded Body height Body mass index (BMI) Body weight Heart rate Respiratory rate Oxygen saturation Oxygen saturation in Arterial blood by Pulse oximetry Systolic blood pressure Diastolic blood pressure Provider Name and Address Organization Details Last Updated DateTime 5 165.1 cm 18.6 kg/m2 74547.3 5 g 86 /min 14 /min 97 % 97 % 99 mm[Hg] 58 mm[Hg] Karena Day [facility] [employer] [facility] 5 15:02:00 Date Recorded Body height Body mass index (BMI) Body weight Heart rate Respiratory rate Body temperature Systolic blood pressure Diastolic blood pressure Provider Name and Address Organization Details Last Updated DateTime 5 165.1 cm 18.6 kg/m2 96225.3 5 g 76 /min 14 /min 98.6 [degF] 100 mm[Hg] 60 mm[Hg] Kia Waller MA ME [employer] [facility] 5 14:26:07 Date Recorded Body height Body mass index (BMI) Body weight Body temperature Heart rate Oxygen saturation Oxygen saturation in Arterial blood by Pulse oximetry Systolic blood pressure Diastolic blood pressure Provider Name and Address Organization Details Last Updated DateTime 5 165.1 cm 17.5 kg/m2 03323.2 g 97.4 [degF] 77 /min 98 % 98 % 108 mm[Hg] 76 mm[Hg] Lisandra Trevin ramirez [employer] [facility] 5 14:59:51 Date Recorded Body height Heart rate Respiratory rate Body temperature Oxygen saturation Oxygen saturation in Arterial blood by Pulse oximetry Systolic blood pressure Diastolic blood pressure Provider Name and Address Organization Details Last Updated DateTime 5 165.1 cm 80 /min 16 /min 98.1 [degF] 95 % 95 % 136 mm[Hg] 75 mm[Hg] Ivis Morley ME [employer] [facility] 5 15:28:25 Date Recorded Body height Body mass index (BMI) Body weight Heart rate Oxygen saturation Oxygen saturation in Arterial blood by Pulse oximetry Body temperature Systolic blood pressure Diastolic blood pressure Provider Name and Address Organization Details Last Updated DateTime 5 165.1 cm 17.1 kg/m2 44957.0 1 g 86 /min 97 % 97 % 97.2 [degF] 126 mm[Hg] 80 mm[Hg] Vicky shankar Sinai [employer] [facility] 5 15:22:50 Social History Question Answer Notes LastModified by Organization Details LastModified Time Tobacco Smoking Status Former Smoker Quit 2021 Leti agrawal [employer] [facility] 08/06/2024 09:11:19 Do You Have An Advance Directive? No [email or web address] Information not available 08/02/2024 Are You Blind Or Do You Have Difficulty Seeing? No MIGRATION.0301 [id number] Information not available 09/22/2022 Is Blood Transfusion Acceptable In An Emergency? Yes [email or web address] Information not available 08/02/2024 What Is Your Level Of Caffeine Consumption? Moderate MIGRATION.0301 470783 Information not available 09/22/2022 In The 14 Days Before Symptom Onset, Have You Had Close Contact With A Laboratory-confi rmed COVID-19 While That Case Was Ill? No MIGRATION.0301 [id number] Information not available 09/22/2022 In The 14 Days Before Symptom Onset, Have You Had Close Contact With A Person Who Is Under Investigation For COVID-19 While That Person Was Ill? No MIGRATION.0301 [id number] Information not available 09/22/2022 Are You Deaf Or Do You Have Serious Difficulty Hearing? No MIGRATION.0301 002487 Information not available 09/22/2022 What Type Of Diet Are You Following? REGULAR MIGRATION.0301 178455 Information not available 09/22/2022 What Is The Highest Grade Or Level Of School You Have Completed Or The Highest Degree You Have Received? [id number] [email or web address] Information not available 08/02/2024 Have There Been Any Changes To Your Family Or Social Situation? No MIGRATION.0301 339073 Information not available 09/22/2022 What Is The Fluoride Status Of Your Home? Unknown MIGRATION.0301 014351 Information not available 09/22/2022 When Did You Quit Smoking? 1-5yearssincelastci garette MIGRATION.0301 000134 Information not available 09/22/2022 Do You Use Insect Repellent Routinely? No MIGRATION.0301 168708 Information not available 09/22/2022 Where Do You Live? SingleLevelHouse MIGRATION.0301 136918 Information not available 09/22/2022 Are You Able To Care For Yourself? Yes [email or web address] Information not available 04/13/2023 Are You Blind Or Do Yo Have Difficulty Seeing? No [email or web address] Information not available 04/13/2023 Are You Deaf Or Do You Have Serious Difficulty Hearing? No [email or web address] Information not available 04/13/2023 Live Alone Of With Others? Alone [email or web address] Information not available 04/13/2023 Do You Have A Medical Power Of Assistant Corporate Secretary? No [email or web address] Information not available 08/02/2024 What Was The Date Of Your Most Recent Tobacco Screening? 08/13/2024 [email or web address] Information not available 08/13/2024 How Many Children Do You Have? 0 [email or web address] Information not available 08/02/2024 What Is Your Current Pack Years? [email or web address] MIGRATION.0301 677672 Information not available 09/22/2022 Do You Have Any Pets? No [email or web address] Information not available 04/13/2023 What Is Your Relationship Status? [email or web address] Information not available 08/02/2024 Do You Use Your Seat Belt Or Car Seat Routinely? Yes MIGRATION.0301 165170 Information not available 09/22/2022 Do You Have Smoke And Carbon Monoxide Detectors In Your Home? No [email or web address] Information not available 04/13/2023 At What Age Did You Start Smoking Tobacco? 18 MIGRATION.0301 395804 Information not available 09/22/2022 Are You Passively Exposed To Smoke? No [email or web address] Information not available 04/13/2023 Are There Any Smokers In Your House? No [email or web address] Information not available 04/13/2023 How Much Tobacco Do You Smoke? No MIGRATION.0301 616297 Information not available 09/22/2022 Do You Use Sunscreen Routinely? No MIGRATION.0301 055079 Information not available 09/22/2022 Has Tobacco Cessation Counseling Been Provided? No MIGRATION.0301 116961 Information not available 09/22/2022 How Many Years Have You Smoked Tobacco? 58 Information not available 08/06/2024 Have You Recently Traveled Abroad? No Information not available 04/13/2023 Do You Have Difficulty Walking Or Climbing Stairs? Yes MIGRATION.0301 308643 Information not available 09/22/2022 Do You Have Any Dietary Restrictions? No MIGRATION.0301 613364 Information not available 09/22/2022 Sex: Unknown Functional Status Question Answer Note LastModified by Organizat ion Details LastModified Time Do you use any illicit or recreational drugs? No MIGRATION.33696 83228 Information not available 09/22/2022 Do you or have you ever used any other forms of tobacco or nicotine? No MIGRATION.17743 29979 Information not available 09/22/2022 What is your level of alcohol consumption? None MIGRATION.67392 74667 Information not available 09/22/2022 Are you currently employed? Yes [email or web address] Information not available 08/02/2024 Do you have transportation difficulties? Yes Patient does not drive. MIGRATION.35696 41005 Information not available 09/22/2022 Are you able to walk? YESWOREST MIGRATION.82848 77685 Information not available 09/22/2022 Do you have difficulty doing errands alone? Yes Patient can not walk long distances. MIGRATION.03925 76869 Information not available 09/22/2022 Are you able to care for yourself? 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 No MIGRATION.96838 53337 Information not available 09/22/2022 What is your exercise level? None [email or web address] Information not available 08/02/2024 Mental Status Question Answer Note LastModified by Organizat ion Details LastModified Time Do you feel stressed (tense, restless, nervous, or anxious, or unable to sleep at night)? [id number] MIGRATION.[id number] 26 Information not available 09/22/2022 Do you have difficulty concentrating, remembering or making decisions? No MIGRATION.79472944 26 Information not available 09/22/2022 Family History Relationship Description Onset Age of this Age Resolved Age Notes LastModified by Organization Details LastModified Time Mother Diabetes mellitus 69 MIGRATION.223 [id number] Not available 09/22/2022 13:30:12 Mother Heart disease 69 MIGRATION.460 [id number] Not available 09/22/2022 13:30:12 Brother Myocardial infarction 74 MIGRATION.381 [id number] Not available 09/22/2022 13:30:12 Sister Mesothelioma (malignant, clinical disorder) MIGRATION.198 [id number] Not available 09/22/2022 13:30:12 Medical History Condition Response STROKE/TIA Y Gynecological HistoryNo gynecological history recorded. Obstetrics History GPAL:G 0 P 0 0 0 0 Immunizations Vaccine Type Date Status Note Provider Nam e and Address Organization Details Recorded Time RSV, recombinant, protein subunit RSVpreF, adjuvant reconstituted, 0.5 mL, PF 4 completed [facility] [employer] [facility] 08/14/2024 11:04:49 Tdap 3 completed [facility] [employer] 08/14/2024 11:05:08 Influenza, high-dose, quadrivalent, PF 3 completed Ariel Hong MD [address] [place] [address], [place], [address], [facility] [employer] 06/23/2023 15:16:36 Pneumococcal conjugate PCV 13 8 completed Not Available [facility] 09/22/2022 13:32:42 pneumococcal polysaccharide PPV23 6 completed Not Available [facility] 09/22/2022 13:32:42 COVID-19, mRNA, LNP-S, PF, 30 mcg/0.3 mL dose 1 completed Not Available [facility] 09/22/2022 13:32:42 COVID-19, mRNA, LNP-S, PF, 30 mcg/0.3 mL dose 1 completed Not Available [facility] 09/22/2022 13:32:42 Influenza, split virus, quadrivalent, preservative 0 completed Not Available [facility] 09/22/2022 13:32:42 Influenza, high-dose, quadrivalent, PF 2 completed Not Available [facility] 09/22/2022 13:32:43 Influenza, high-dose, quadrivalent, PF 1 completed Not Available [facility] 09/22/2022 13:32:43 Past Encounters Encounter ID Performer Location Encounter Start Date Encounter Closed Date Diagnosis/Indication Diagnosis SNOMED-CT Code Diagnosis ICD10 Code Diagnosis Note [id number] Ariel Hong MD [facility] [address] [place] [address] 12/11/2020 00:00:00 12/11/2020 16:41:12 [id number] Ariel Hong MD [facility] [address] [place] [address] 05/14/2021 00:00:00 05/14/2021 12:14:11 [id number] Ariel Hong MD [facility] [address] [place] [address] 09/04/2021 00:00:00 09/04/2021 09:24:37 [id number] Ariel Hong MD [facility] Internal [facility] [address] [facility] [place] [address] 09/16/2021 00:00:00 09/16/2021 10:11:09 [id number] Maxwell torres MD [facility] [address] [place] [address] 09/28/2021 00:00:00 09/29/2021 18:05:06 [id number] MD CHIKI Flores_[facility] Internal Med [address] [facility] [place] [address] 10/19/2021 00:00:00 10/19/2021 15:08:42 [id number] MD CHIKI Flores_[facility] Internal Med [address] [facility] [place] [address] 01/11/2022 00:00:00 01/11/2022 14:33:42 [id number] MD CHIKI Flores[facility] Internal Med [address] [place] [address]. [place] [address] 02/10/2022 00:00:00 02/10/2022 15:38:22 [id number] MD CHIKI Flores_[facility] Internal Med [address] [facility] [place] [address] 02/23/2022 00:00:00 02/23/2022 16:13:32 [id number] MD CHIKI Flores_[facility] Internal Med [address] [facility] [place] [address] 03/17/2022 00:00:00 03/17/2022 10:46:32 [id number] MD CHIKI Flores_[facility] Internal Med [address] [facility] [place] [address] 04/01/2022 00:00:00 04/01/2022 10:28:31 [id number] MD CHIKI Flores_[facility] Internal Med [address] [facility] [facility] [place] [address] 06/10/2022 00:00:00 06/10/2022 13:07:23 [id number] Ariel Hong MD [facility] Internal [facility] [address] [facility] [place] [address] 08/05/2022 00:00:00 08/05/2022 11:28:38 [id number] Ariel Hong MD [facility] Internal [facility] [address] [facility] [place] [address] 08/19/2022 00:00:00 08/19/2022 10:13:13 [id number] Ariel Hong MD [facility] Internal [place] [address] [facility] [place] [address] 10/13/2022 11:58:24 10/13/2022 12:42:49 Postherpetic neuralgia 3844162 B02.29 pain is under control with meds Osteoporosis 86068044 M8 1.0 on meds, needs dexa Vitamin D deficiency 347 18624 E55.9 otc Migraine 37302623 G43.90 9 better with meds Gastroesop hageal reflux disease 376134361 K21.9 s/p EGD 01/07, Smoker 75821133 F17.200 advised to quit Anxiety 56716369 F41.9 under control with meds Cerebrovas cular accident 426153520 I63.9 improved , NO WEAKNESS Hyperlipidemia 41465294 E78.5 under control Essential hypertension 54524122 I10 under control Adult [facility] th examination 718836166 Z00.00 had colonoscop y 01/07 per hermammogr am - 12/2020 , was ordereddex a 08/17/19 , was orderedpre vnar 13 04/12/18Pne umovax 23- 03/16/16LDC T- 12/2020FLU - 2COV ID Vacc- 07/28/2020 & 08/18/2020 [id number] Ariel Hong MD [facility] Internal [facility] [address] [facility] [place] [address] 01/26/2023 14:51:13 01/26/2023 15:09:02 Upper respiratory infection 76222896 J06.9 [id number] Ariel Hong MD [facility] Internal [facility] [address] [facility] [place] [address] 02/14/2023 15:42:55 02/14/2023 17:01:58 Postherpetic neuralgia 4326581 B02.29 pain is under control with meds Osteoporosis 54876318 M8 1.0 on meds, Vitamin D deficiency 347 21600 E55.9 otc Migraine 54499411 G43.90 9 better with meds Gastroesop hageal reflux disease 817700025 K21.9 s/p EGD 01/07, Anxiety 90288294 F41.9 under control with meds Cerebrovas cular accident 071536144 I63.9 improved , NO WEAKNESS Hyperlipidemia 30349165 E78.5 under control Essential hypertension 10679035 I10 under control Adult heal th examination 422668019 Z00.00 had colonoscop y 01/07 per hermammogr am - 12/2020 , was ordereddex a 08/17/19 , was orderedpre vnar 13 04/12/18Pne umovax - 03/16/16LDC T- 12/2020FLU - 2COV ID Vacc- 07/28/2020 & 08/18/2020 Anterior epistaxis 33565 4002 R04.0 stop using Fluticason e, use saline spray [id number] Ariel Hong MD [facility] Internal Med [address] [facility] [place] [address] 04/13/2023 14:15:26 04/13/2023 15:15:00 Adult health examination 857085547 Z00.00 had colonoscop y 01/07 per hermammogr am - 12/2020 , was ordereddex a 08/17/19 , was orderedpre vnar 13 04/12/Pne umovax 23- 03/16/16LDC T- 12/2020FLU - 2COV ID Vacc- 07/28/2020 & 08/18/2020 Screening for disorder 858599611 Z13.9 Feeling of lump in throat 578813343 F45.8 Anemia 091476279 D64.9 [id number] Ariel Hong MD [facility] Internal Med [address] [place] [address] 06/23/2023 14:32:22 06/23/2023 15:19:14 Adult health examination 497207785 Z00.00 had colonoscop y 01/07 per hermammogr am - 12/2020 , was ordereddex a 08/17/19 , was orderedpre vnar 13 04/12/18Pne umovax 23- 03/16/16LDC T- 12/2020FLU - 2COV ID Vacc- 07/28/2020 & 08/18/2020 Anemia 579794246 D64.9 Postherpet ic neuralgia 7037069 B02.29 pain is under control with meds Osteoporosis 36469809 M8 1.0 on meds, Vitamin D deficiency 347 32541 E55.9 otc Migraine 63006921 G43.90 9 better with meds Gastroesop hageal reflux disease 581893671 K21.9 s/p EGD 01/07, Anxiety 43848481 F41.9 under control with meds Cerebrovas cular accident 446420983 I63.9 improved Hyperlipidemia 38022189 E78.5 under control Essential hypertension 80595442 I10 not under control Itching of skin 29941108 0 L29.9 Administra tion of influenza vaccine 34569133 Z23 Screening mammography 24 884780 Z12.31 Screening for osteoporosis 721062291 Z13.820 Ex-smoker 1710442 Z87.89 1 Eruption 490223844 R21 [id number] Ariel Hong MD [facility] Internal Med [address] [facility] [place] [address] 10/10/2023 15:24:01 10/10/2023 15:52:52 Viral gastroenteritis 877336390 A08.4 [id number] Ariel Hong MD [facility] Internal [address] [place] [address] 01/31/2024 14:00:43 01/31/2024 14:31:51 Abdominal pain 66451860 R10.9 improved Constipation 59912486 K5 9.00 water, fiber Essential hypertension 71091405 I10 not under control , will recheck in 3 weeks [id number] Ariel Hong MD S_[facility] Med [address] [place] [address] 08/02/2024 14:29:55 08/02/2024 15:43:36 Hyperlipidemia 19945991 E78.5 under control Adult heal th examination 219558691 Z00.00 had colonoscop y 01/07 per hermammogr am - 12/2020 , was ordereddex a 08/17/19 , was orderedpre vnar 13 04/12/18Pne umovax 23- 03/16/16LDC T- 12/2020FLU - 05/2022,OVID Vacc- 07/28/2020 & 08/18/2020 Anemia 318343684 D64.9 Postherpet ic neuralgia 5754440 B02.29 pain is under control with meds Osteoporosis 73853087 M8 1.0 on meds, Vitamin D deficiency 347 90241 E55.9 otc Migraine 06702346 G43.90 9 better with meds Gastroesop hageal reflux disease 578984267 K21.9 s/p EGD 01/07, Anxiety 38589760 F41.9 under control with meds Cerebrovas cular accident 156161891 I63.9 improved Itching of skin 66005703 0 L29.9 Ex-smoker 3721296 Z87.89 1 Cigarette smoker 1761353 7 F17.545 [id number] Myron Rose DPM [facility] Pod[facility] [place] [address] [place] [address] 08/13/2024 14:53:48 2024 13:23:50 Pain of toes of bilateral feet 8709852647 8971633 M79.674 M79.675 bilateral great toenails Dystrophia unguium 38925 009 L60.3 bilateral great toenailstr eatment options reviewedna ils debrided without incident new line patient will return for total nail avulsion procedure both great toenails for total nail avulsion [id number] Myron Rose DPM [facility] Pod[facility] [place] [address] [facility] [address] [place] [address] 08/23/2024 14:20:37 10/17/2024 09:57:58 Dystrophia unguium 85883803 L60.3 bilateral great toenails- total nail avulsion performed todaytreat ment options reviewedre viewed wound care and dressing change- performed dailymonit or for signs of infection present seek medical attention immediatel yFollow-up in 1 week [id number] Ariel Hong MD [facility] Internal Med [facility] [address] [place] [address] 08/29/2024 14:44:22 08/29/2024 15:19:15 [facility] [id number] R21 [id number] Myron Rose DPM [facility] [address] [place] [address] 09/12/2024 15:10:00 09/12/2024 16:23:52 Dystrophia unguium 29641347 L60.3 bilateral great toenails- total nail avulsion healedRx ketoconazo le- apply daily toenail bedfollow- up 3 months [id number] Ariel Hong MD [facility] Internal [facility] [address] [place] [address] 12/31/2024 15:16:00 12/31/2024 16:04:55 Preoperative state 57236804 Z01.818 getting pre op testing at [place] tomorrowne eds EKG and labs , will get results otherwise low risk Health Concerns Section Related Observation LastModified by Organization Detai ls LastModified Time None Recorded Concern Status LastModified by Organization Details LastModified Time None Recorded Advance Directives Directive N: Payers Encounter Date Sequence Insurance Name Policy Number Policy Graham Covered Member ID Graham Member ID Guarantor Name 08/13/2024 1 [employer] (MEDICARE REPLACEMENT/ ADVANTAGE - PPO) [id number] L Joie Miramontes Holloway [id number] Joie Fe Holloway 08/23/2024 1 [employer] (MEDICARE REPLACEMENT/ ADVANTAGE - PPO) [id number] L Joie J Holloway [id number] Joie J Holloway 08/29/2024 1 [employer] (MEDICARE REPLACEMENT/ ADVANTAGE - PPO) [id number] L Joie Miramontes Holloway [id number] Joie Miramontes Holloway 09/12/2024 1 [employer] (MEDICARE REPLACEMENT/ ADVANTAGE - PPO) [id number] L Joie [employer] [id number] Joie Miramontes Holloway 12/31/2024 1 [employer] (MEDICARE REPLACEMENT/ ADVANTAGE - PPO) Joie Calixt [id number] Joie Miramontes Holloway Notes Date Note Type Note Provider Name and Address Organization Details Recorded Time 08/13/2024 text/html . Patient is a 78-year-old female she presents with complaints of thickened great toenails. Patient states she has difficulty cutting them she also has pain to these nails. Patient denies any treatment for the condition. 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 Patient states when she is not in shoe gear and not walking she does not have any pain to the foot. Patient denies any other complaints. Myron Rose DPM [address], [place], [address], [employer] 08/14/2024 09:28:40 08/23/2024 text/html . Patient is a 79-year-old female she returns the office for an office procedure. Patient understands all risks, benefits, complications of planned procedure and elects to continue. Patient denies any other complaints. Myron Rose DPM [address], [place], [address], [employer] 09/17/2024 14:13:55 08/29/2024 text/html Pt is here today for right sided face pain that has been going on for few months. Red and swollen in appearance. It is making her have radiating headaches from time to time. No ear pain.Pt is have glaucoma surgery on the 17 of this month and was getting worried bout the pain. Pt is not fasting.. Ariel Hong MD [address], [place], [address], [employer] 08/29/2024 15:15:49 09/12/2024 text/html . Patient is a 79-year-old female who returns the office for follow-up on bilateral great toenail avulsions she is completely healed she is doing well she denies any pain or signs of infection to the toes. Patient is happy with the outcomes currently. Patient denies any other complaints. Myron Rose DPM [address] [place] [facility], [facility] [address], [place], [address], [employer] 09/12/2024 15:53:56 12/31/2024 text/html Pt is here today for a surgical clearance.She is scheduled for Sinus surgery for 01/04/25Dr Alkarni / ENT Migraine headaches- was on amitriptyline, not any more and headaches are under controlGERD- status post endoscopy which revealed reflux esophagitis.Meds- pantoprazole 40 mg qd,Anxiety- better without meds, sleeps good,Meds- WAS on mirtazapine 45 mg dailyCVA - 02/12, had left sided weakness, improved completelyEx- smoker-QUIT smoking in 2021-Vit D def- otcOsteoporosis- dexa 08/13,Meds- alendronate 70 mg qd Ariel Hong MD [address] [place] [facility], [facility] [address], [place], [address], [employer] 12/31/2024 15:38:07 OBGyn Episode No OBEpisode recorded.
== END 2025-01-01 12:14 | disposition home or self-care (01) ==
PROVIDERS: Anesthesiology; PCP Internal Medicine; Visit Provider Otolaryngology Otolaryngology/Facial Plastic Surgery
DX: Z01.818 Encounter for other preprocedural examination (principal); R94.31 Abnormal electrocardiogram [ECG] [EKG]; D64.9 Anemia, unspecified; E78.00 Pure hypercholesterolemia, unspecified
CPT/HCPCS: 36415; 85014; 85018; 93005

== ENCOUNTER 2025-01-04 01:19 | Day surgery (SDC) | payer MEDICARE, SELFPAY ==
[2024-12-26 10:23] VITALS: BMI 17.3
--- NOTE | 2024-12-26 10:58 | PC.NURSE ---
Report to the Outpatient Waiting Room, entrance under the green pavilion located off [facility], at time ____8:00AM___ on date __01/04/25 . Planned Procedure Time: ___10:00AM .? Time changes happen often and if your time is changed the preop area will call you the afternoon before. - You and your visitor will be asked to self-screen and do not enter if you have any COVID symptoms. Please call surgeon if you need to reschedule. - A mask is optional within the hospital at this time. Patients may have clear liquids (water, carbonated beverages, clear teas, apple juice) until 3 hours prior to surgery (7:00AM) with a maximum of 20 ounces. - No food from midnight until time of surgery and no smoking, or chewing tobacco (or any form of nicotine). No chewing gum, candy or mints. Take only the following medications with a SIP of water on the morning of surgery: ____DOXYCYCLINE, GABAPENTIN, MIRTAZAPINE,MEDROL PACK, EYE DROPS. MAY TAKE HYDROXYZINE NEEDED. DO NOT STOP ANY OF YOUR OTHER PRESCRIPTION MEDICATIONS PRIOR TO SURGERY EXCEPT THE FOLLOWING Hold all vitamins and supplements for 3 days per anesthesiologist. Medications to discontinue per physician ____HOLD PLAVIX(CLOPIDOGREL) AND ASPIRIN 7 DAYS PRE-OP PER DR STEVENS Date to take last dose 12/27/24 Please no make-up, nail brazilian, hairspray, perfume, deodorant, or body powder the day of surgery.? No jewelry (including any body piercings) or valuables the day of surgery, leave them at home.? Please take a shower or bath the night before, or the morning of, surgery with an antibacterial soap.? Wear comfortable, loose fitting clothing.? - Jewelry must be removed prior to entering the operating room.? Rings and piercings that are not removed may be cut off. - The hospital will not accept responsibility for valuables.? - Please leave all valuables, including medications, at home the day of surgery. If you are going home after surgery, a licensed petroleum transport driver must drive you home.? - NO public transportation without another adult if you receive anesthesia. - We recommend that an adult stay with you for 24 hours following discharge. - We also recommend that you do not drive, make important decision, drink alcoholic beverages, or take any drugs that were not prescribed by your health care provider for at least 24 hours after your discharge time. Follow any additional instructions given to you from your surgeon. Telephone instructions given to ____PATIENT and asked if any additional questions and then verbalized understanding. Patient advised to call surgeon office or pre surgery nurse liaison [phone] if any additional questions.
[2025-01-04] VITALS (11 sets, daily range): BP systolic 101–158; BP diastolic 54–81; PULSE 64–666; RESP 12–18; TEMP 36.1–36.3; O2SAT 93–100
--- OUTSIDE RECORDS SUMMARY | 2025-01-04 01:21 | XMS_ITS | Continuity of Care Document ---
Author Organization [facility] Address [address] [facility] [address] [place] [address] Phone Care Team Providers Care Crib Clerk Name Role Phone Pagan OD, Olvin Unavailable Unavailable Procedures Procedure Date Eye Exam, New Patient Refraction BF Plastic Sphcyl Festus To +/-4d .12-2d Frames Deluxe Tax - Medical Advance Directives Directive Yes / No Effective Date File Name No Information Encounters Encounter Description Practice Location Reason(s) For Visit Diagnoses Date Provider Providers Copied on Encounter [facility], [address] [place] [address] [address], [place], [place], [id number], [place] tel:[phone] [facility] No Information Feb-0 4-200 9 Pagan OD Olvin. [address] [place] [address] , [address], [place], [address], [place]. tel:[phone] [facility], [address] [place] [address] [address], [place], [place], [id number], [place] tel:[phone] [facility] No Information Feb-0 4200 9 [facility] . [address], [address], [place], [place], [id number], [place]. tel:[phone] Referring Provider: Olvin Pagan OD [facility], [address] [place] [address] [address], [place], [address]. tel:[phone] sulting Provider: Reji Mcdaniels, [address] [place] [address], [place], [address]. tel:[phone] Family History Family Member Type Diagnosis Age At Onset No Information Payers Payer name Insurance type Covered alliance party ID Authoriza tion(s) No Information Social [...]
--- OUTSIDE RECORDS SUMMARY | 2025-01-04 01:22 | XMS_ITS | Data Portability ---
Author Organization [place] [facility], Main Office Address [address] [place] [address] Assessment Encounter Date Assessment Date Assessment LastModified by Organization Details LastModified Time 08/13/2024 08/13/2024 This note is dictated and transcribed by [email or web address]. Assistant Corporation Counsel variances may occur. Despite proofreading, typographical errors may occur. Occasional wrong-word or 'ujnhr-k-jsea' substitutions may have occurred due to the inherent limitations of voice recording. Read the chart carefully and recognize, using context, where substitutions have occurred. Not available 08/13/2024 15:47:57 08/23/2024 08/23/2024 This note is dictated and transcribed by [email or web address]. Assistant Corporation Counsel variances may occur. Despite proofreading, typographical errors may occur. Occasional wrong-word or 'qdrhu-x-njyp' substitutions may have occurred due to the inherent limitations of voice recording. Read the chart carefully and recognize, using context, where substitutions have occurred. Not available 08/23/2024 15:18:17 09/12/2024 09/12/2024 This note is dictated and transcribed by [email or web address]. Assistant Corporation Counsel variances may occur. Despite proofreading, typographical errors may occur. Occasional wrong-word or 'dajht-y-xdlw' substitutions may have occurred due to the inherent limitations of voice recording. Read the chart carefully and recognize, using context, where substitutions have occurred. Not available 09/12/2024 15:52:51 Plan of Treatment Reminders Order Date Submit Date Provider Last Modified By Organization Details Last Modified Time Details Appointments Establish ed Patient 15 2024 01:00P M Ariel Boston MD Not available Not available Not available Lab None recorded. Referral None recorded. Procedures None recorded. Surgeries None recorded. Imaging None recorded. Medication Orders ketoconaz ole 2 % topical cream [address] [facility] [address], [address] [place] [address], [address], 09/12/2024 15:53:36 triamcino lone acetonide 0.1 % topical cream [address] [facility] [address], [address] [place] [address], [address], 08/29/2024 15:15:05 Patient TargetsNo targets recorded. Patient Instructions Encounter Date Encounter Id Patient Instructions Last Modified By Organization Details Last Modified Time 08/23/2024 [id number] paronychia: care instructions Not available 08/23/2024 15:18:56 [...] ----- HIGH RISK: >240 >200 Not Available [facility] (Lab) [address] [place], [address], 10/01/2024 15:05:21 10/02/19 25 10/01/2024 LIPID PANEL triglyceride s 36 mg/dL 0-150 [facility] PEDRO LUIS NSUS REPOR T RECOM MENDA TION FOR TRIGL YCERI MARTA: ADULT CHILD LOW RISK: <150 ----- BODER LINE: 150-1 99 ----- HIGH RISK: >200 ----- Not Available [facility] (Lab) [address] [place], [address], 10/01/2024 15:05:21 10/02/19 25 10/01/2024 LIPID PANEL HDL cholesterol 86 mg/dL 40- Not Available [facility] (Lab) [address] [place], [address], 10/01/2024 15:05:21 10/02/1910/01/2024 LIPID PANEL LDL cholesterol, [...] WILL NOT BE REPOR ENE. Not Available [facility] (Lab) [address] [place], [address], 10/01/2024 15:05:21 10/02/19 25 10/01/2024 COMPR EHENS NICANOR METAB OLIC PANEL sodium 136 mmol/ L 137-14 5 low Not Available [facility] (Lab) [address] [place], [address], 10/01/2024 15:05:37 10/02/19 25 10/01/2024 COMPR EHENS NICANOR METAB OLIC PANEL potassium 4.2 mmol/ L 3.5-5. 1 Not Available [facility] (Lab) [address] [place], [address], 10/01/2024 15:05:37 10/02/19 25 10/01/2024 COMPR EHENS NICANOR METAB OLIC PANEL chloride 107 mmol/ L 98-107 Not Available [facility] (Lab) [address] [place], [address], 10/01/2024 15:05:37 10/02/19 25 10/01/2024 COMPR EHENS NICANOR METAB OLIC PANEL carbon dioxide 27 mmol/ L 22-30 Not Available [facility] (Lab) [address] [place], [address], 10/01/2024 15:05:37 10/02/19 25 10/01/2024 COMPR EHENS NICANOR METAB OLIC PANEL anion gap 6.2 mmol/ L 14-22 low Not Available [facility] (Lab) [address] [place], [address], 10/01/2024 15:05:37 10/02/19 25 10/01/2024 COMPR EHENS NICANOR METAB OLIC PANEL glucose 49 mg/dL 70-99 low Not Available [facility] (Lab) [address] [place], [address], 10/01/2024 15:05:37 10/02/19 25 10/01/2024 COMPR EHENS NICANOR METAB OLIC PANEL BUN 29 mg/dL 8-19 high Not Available [facility] (Lab) [address] [place], [address], 10/01/2024 15:05:37 10/02/19 25 10/01/2024 COMPR EHENS NICANOR METAB OLIC PANEL creatinine 0.85 mg/dL 0.66-1 .25 Not Available [facility] (Lab) [address] [place], [address], 10/01/2024 15:05:37 10/02/19 25 10/01/2024 COMPR EHENS NICANOR METAB OLIC PANEL GFR >60 Refer ence Range : Blandon ge GFR Healt hy Adult : >60 [...] calcu lator is avail able on the [facility] websi te: [email or web address] :[email or web address] [email or web address] [email or web address] rg/pr ofess ional s/kdo qi/gf r_cal culat or Not Available [facility] (Lab) [address] [place], [address], 10/01/2024 15:05:37 10/02/19 25 10/01/2024 COMPR EHENS NICANOR METAB OLIC PANEL alkaline phosphatase 56 U/L 38-126 Not Available [facility] (Lab) [address] [place], [address], 10/01/2024 15:05:37 10/02/19 25 10/01/2024 COMPR EHENS NICANOR METAB OLIC PANEL alanine aminotransfe rase 25 U/L 0-[address] [facility] (Lab) [address] [place], [address], 10/01/2024 15:05:37 10/02/19 25 10/01/2024 COMPR EHENS NICANOR METAB OLIC PANEL aspartate aminotransfe rase 25 U/L 15-[address] [facility] (Lab) [address] [place], [address], 10/01/2024 15:05:37 10/02/19 25 10/01/2024 COMPR EHENS NICANOR METAB OLIC PANEL bilirubin, total 0.40 mg/dL 0.20-1 .30 Not Available [facility] (Lab) [address] [place], [address], 10/01/2024 15:05:37 10/02/19 25 10/01/2024 COMPR EHENS NICANOR METAB OLIC PANEL calcium 8.9 mg/dL 8.4-10 .2 Not Available [facility] (Lab) [address] [place], [address], 10/01/2024 15:05:37 10/02/19 25 10/01/2024 COMPR EHENS NICANOR METAB OLIC PANEL total protein 6.3 g/dL 6.3-8. 2 Not Available [facility] (Lab) [address] [place], [address], 10/01/2024 15:05:37 10/02/19 25 10/01/2024 COMPR EHENS NICANOR METAB OLIC PANEL albumin 4.0 g/dL 3.0-4. 4 Not Available [facility] (Lab) [address] [place], [address], 10/01/2024 15:05:37 10/02/19 25 10/01/2024 COMPR EHENS NICANOR METAB OLIC PANEL globulin 2.3 g/dL 2.6-4. 2 low Not Available [facility] (Lab) [address] [place], [address], 10/01/2024 15:05:37 10/02/19 25 10/01/2024 COMPR EHENS NICANOR METAB OLIC PANEL A/G ratio 1.7 ratio 1.0-2. 0 Not Available [facility] (Lab) [address] [place], [address], 10/01/2024 15:05:37 10/02/19 25 10/01/2024 VITAM IN D 25-HY DROXY vd25oh 43.8 NG/mL 30-100 Vitam in D Statu s: Defic ient: <20 ng/mL Insuf ficie nt: 20-29 ng/mL Suffi cient : 30-10 0 ng/mL Not Available [facility] (Lab) [address] [place], [address], 10/01/2024 15:46:33 10/03/19 25 10/01/2024 LDCT, chest , for lung cristian r cinthya lobo [facility] [address] [place] [address] [phone] Patijaneen t Name: JEZ HOLLOWAY Access ion #: [id number] Sex: F : 1945 3 Locati on: [facility] Attend ing Physic roberth: [facility] Orderi ng Physic roberth: [facility] Exam Date: 025 12:38 PM Exam [...] 32.9 mGy*cm . Page 1 of 3 [facility] Patijaneen t Name: JEZ HOLLOWAY Access ion #: [id number] Sex: F : 1945 3 Exam [...] are stable . 2. Cardio megaly and goledn ry artery diseas e. 3. No acute intrat horaci c proces s is otherw ise identi fied here. Lung-R ADS 2. Benign . Contin ue annual screen ing with LDCT in 12 months . Lung-R ADS v2022. Create d and electr onical ly signed by: Tony rodriguez MD Signed Date: 10:50 AM (CT) Dictat ed by: Tony rodriguez MD Page 2 of 3 [facility] Name: JEZ HOLLOWAY Access ion #: [id number] Sex: F : 1945 3 Exam Date: 12:38 PM Exam Name: CT LOW DOSE CNCR SCREEN ING Admitt ing Diagno sis(es ): DD: 025 10:50 AM (CT) DT: 025 10:50 AM (CT) Page 3 of 3 [email or web address] [facility] ([facility]) [address] [place], [address], 10/11/2024 15:29:36 10/03/19 25 09/25/2024 US, duple x, carot id arter y No observ ation record ed. [email or web address] Available 15:29:37 Result Notes None recorded. Problems Name Problem SNOMED Code Status Onset Date Resolution Date Notes Provider Name and Address Organization Details Recorded Time Postherpe tic neuralgia 6899123 Active 2021 Not Available [facility] 3 13:30:49 Cerebrova scular accident 940234395 Active 2021 Not Available [facility] 3 13:30:50 Gastroeso phageal reflux disease 576530471 Active 2020 Not Available [facility] 3 13:30:50 Poor short-ter m memory 815584719 Active 2022 Not Available [facility] 3 13:30:50 Adult health examinati on Active 2021 Not Available [facility] 3 13:30:50 Anemia 410879882 Active 2022 Vicky chiu, RMA null, [place] [facility] 3 08:46:18 Eruption 974344112 Active 2022 Not Available [facility] 3 13:30:50 Vitamin D deficienc y 40645079 Active 2020 Not Available [facility] 3 13:30:50 Migraine 89029377 Active 2020 Not Available [facility] 3 13:30:50 Anxiety 67787212 Active 2020 Not Available [facility] 3 13:30:50 Hyperlipi demia 44751683 Active 2021 Not Available [facility] 3 13:30:50 Nicotine dependenc e 26133219 Completed 202001/08/2022 Vicky chiu, RMA null, [place] [facility] 4 08:20:19 Essential hypertens ion 62513676 Active [address] [facility] 3 13:30:50 Osteoporo sis 86054292 Active [address] [facility] 3 13:30:50 Smoker 92074010 Active [address] [facility] 3 13:30:51 Neck pain 65461391 Completed 202106/03/[address] [facility] 3 13:30:51 Administr ation of influenza vaccine Completed 202101/08/[address] [facility] 3 13:30:51 Itching of skin 362160335 Completed 202210/04/2022 Vicky chiu, RMA null, [place] [facility] 4 08:15:24 Colorecta l cancer detected by DNA-based stool screening 504298642 Active 2022 Nadine Parker [employer]ACHINE [employer] SUPERVISOR null, [place] [facility] 3 09:29:15 Nicotine dependenc e 84867474 Active 2022 Vicky chiu RMA null, [place] [facility] 4 08:20:19 Upper respirato ry infection 23555230 Completed 202205/23/2024 Vicky chiu RMA null, [place] [facility] 4 08:20:15 Anterior epistaxis 349086203 Completed 202205/23/2024 Vicky chiu, RMA null, [place] [facility] 4 08:15:46 Feeling of lump in throat 171242304 Completed 202205/23/2024 Vicky chiu RMA null, [place] [facility] 4 08:15:33 Abnormal weight 98169228 Active 2023 Vicky chiu RMA null, [place] [facility] 4 15:38:31 Nausea and vomiting 85487623 Completed 202305/23/2024 Vicky Stdayronbea n, RMA null, [place] [facility] 4 08:20:23 Viral gastroent eritis 149451031 Completed 202305/23/2024 Vicky Moultonbea n, RMA null, [place] [facility] 4 08:20:13 Sinusitis 41407921 Active 2023 Vicky Allison n, RMA null, [place] [facility] 4 08:20:17 Itching of skin 344610295 Active 2023 Vicky chiu RMA null, [place] [facility] 4 08:15:24 Abdominal pain 49096405 Active 2023 Ariel Boston MD [address], [address], [place], [address] , [facility] 4 14:22:23 Constipat ion 54777261 Active 2023 Ariel Boston MD [address], [address], [place], [address] , [facility] 4 14:22:34 Cigarette smoker 76335557 Active 2024 Ariel Boston MD [address], [address], [place], [address] , [facility] 5 15:39:43 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 Procedures Surgical History Date Name Laterality Status Provider Name and Address Organization Details Recorded Time 08/23/19 Toenail avulsion completed Myron Rose DPM [address], [address], [place], [address], [facility] [employer] [facility] [employer] [facility] 08/23/2024 15:18:08 08/13/19 Nail Debridement completed Myron Rose DPM [address], [address], [place], [address], [facility] [employer] [facility] [employer] [facility] 08/13/2024 15:47:40 04/13/20 Medicare Wellness CPT Code, subsequent completed Modesta Coon RN [facility] [employer] [facility] 04/13/2023 15:00:20 Hysterectomy completed Not Available [...] pantopraz ole 40 mg tablet,de layed release Take 1 tablet by mouth once daily 2024 active Not Available Not Available Not Avai lable erythromy aramis 5 mg/gram (0.5 %) eye [...] oral route. 2021 active Started per 01/29/22 [facility] discharg e summary Not Available Not Available Not Available Vitals Date Recorded Body height Body mass index (BMI) Body weight Heart rate Respiratory rate Oxygen saturation Oxygen saturation in Arterial blood by Pulse oximetry Systolic blood pressure Diastolic blood pressure Provider Name and Address Organization Details Last Updated DateTime 5 165.1 cm 18.6 kg/m2 15279.3 5 g 86 /min 14 /min 97 % 97 % 99 mm[Hg] 58 mm[Hg] Karena HUDSON - [facility] 5 15:02:00 Date Recorded Body height Body mass index (BMI) Body weight Heart rate Respiratory rate Body temperature Systolic blood pressure Diastolic blood pressure Provider Name and Address Organization Details Last Updated DateTime 5 165.1 cm 18.6 kg/m2 09465.3 5 g 76 /min 14 /min 98.6 [degF] 100 mm[Hg] 60 mm[Hg] Kia Waller MA TRA 5 14:26:07 Date Recorded Body height Body mass index (BMI) Body weight Body temperature Heart rate Oxygen saturation Oxygen saturation in Arterial blood by Pulse oximetry Systolic blood pressure Diastolic blood pressure Provider Name and Address Organization Details Last Updated DateTime 5 165.1 cm 17.5 kg/m2 41207.2 g 97.4 [degF] 77 /min 98 % 98 % 108 mm[Hg] 76 mm[Hg] Lisandra ramirez TRA 5 14:59:51 Date Recorded Body height Heart rate Respiratory rate Body temperature Oxygen saturation Oxygen saturation in Arterial blood by Pulse oximetry Systolic blood pressure Diastolic blood pressure Provider Name and Address Organization Details Last Updated DateTime 5 165.1 cm 80 /min 16 /min 98.1 [degF] 95 % 95 % 136 mm[Hg] 75 mm[Hg] Ivis Morley TRA 5 15:28:25 Date Recorded Body height Body mass index (BMI) Body weight Heart rate Oxygen saturation Oxygen saturation in Arterial blood by Pulse oximetry Body temperature Systolic blood pressure Diastolic blood pressure Provider Name and Address Organization Details Last Updated DateTime 5 165.1 cm 17.1 kg/m2 59954.0 1 g 86 /min 97 % 97 % 97.2 [degF] 126 mm[Hg] 80 mm[Hg] Vicky shankar Sinai TRA 5 15:22:50 Social History Question Answer Notes LastModified by Organization Details LastModified Time Tobacco Smoking Status Former Smoker Quit 2021 Leti agrawal TRA 08/06/2024 09:11:19 Do You Have An Advance Directive? No [email or web address] Information not available 08/02/2024 Are You Blind Or Do You Have Difficulty Seeing? No MIGRATION.0301 [id number] Information not available 09/22/2022 Is Blood Transfusion Acceptable In An Emergency? Yes [email or web address] Information not available 08/02/2024 What Is Your Level Of Caffeine Consumption? Moderate MIGRATION.0301 [id number] Information not available 09/22/2022 In The 14 Days Before Symptom Onset, Have You Had Close Contact With A Laboratory-confi rmed COVID-19 While That Case Was Ill? No MIGRATION.0301 [id number] Information not available 09/22/2022 In The 14 Days Before Symptom Onset, Have You Had Close Contact With A Person Who Is Under Investigation For COVID-19 While That Person Was Ill? No MIGRATION.0301 [id number] Information not available 09/22/2022 Are You Deaf Or Do You Have Serious Difficulty Hearing? No MIGRATION.0301 975912 Information not available 09/22/2022 What Type Of Diet Are You Following? REGULAR MIGRATION.0301 [id number] Information not available 09/22/2022 What Is The Highest Grade Or Level Of School You Have Completed Or The Highest Degree You Have Received? [id number] [email or web address] Information not available 08/02/2024 Have There Been Any Changes To Your Family Or Social Situation? No MIGRATION.0301 [id number] Information not available 09/22/2022 What Is The Fluoride Status Of Your Home? Unknown MIGRATION.0301 627530 Information not available 09/22/2022 When Did You Quit Smoking? 1-5yearssincelastci garette MIGRATION.0301 [id number] Information not available 09/22/2022 Do You Use Insect Repellent Routinely? No MIGRATION.0301 749127 Information not available 09/22/2022 Where Do You Live? SingleLevelHouse MIGRATION.0301 344977 Information not available 09/22/2022 Are You Able To Care For Yourself? Yes [email or web address] Information not available 04/13/2023 Are You Blind Or Do Yo Have Difficulty Seeing? No [email or web address] Information not available 04/13/2023 Are You Deaf Or Do You Have Serious Difficulty Hearing? No [email or web address] Information not available 04/13/2023 Live Alone Of With Others? Alone [email or web address] Information not available 04/13/2023 Do You Have A Medical Power Of Shoe Worker? No [email or web address] Information not available 08/02/2024 What Was The Date Of Your Most Recent Tobacco Screening? 08/13/2024 [email or web address] Information not available 08/13/2024 How Many Children Do You Have? 0 [email or web address] Information not available 08/02/2024 What Is Your Current Pack Years? [email or web address] MIGRATION.0301 [id number] Information not available 09/22/2022 Do You Have Any Pets? No [email or web address] Information not available 04/13/2023 What Is Your Relationship Status? [email or web address] Information not available 08/02/2024 Do You Use Your Seat Belt Or Car Seat Routinely? Yes MIGRATION.0301 [id number] Information not available 09/22/2022 Do You Have Smoke And Carbon Monoxide Detectors In Your Home? No [email or web address] Information not available 04/13/2023 At What Age Did You Start Smoking Tobacco? 18 MIGRATION.0301 [id number] Information not available 09/22/2022 Are You Passively Exposed To Smoke? No Information not available 04/13/2023 Are There Any Smokers In Your House? No [email or web address] Information not available 04/13/2023 How Much Tobacco Do You Smoke? No MIGRATION.0301 584205 Information not available 09/22/2022 Do You Use Sunscreen Routinely? No MIGRATION.0301 046015 Information not available 09/22/2022 Has Tobacco Cessation Counseling Been Provided? No MIGRATION.0301 200831 Information not available 09/22/2022 How Many Years Have You Smoked Tobacco? 58 [email or web address] Information not available 08/06/2024 Have You Recently Traveled Abroad? No [email or web address] Information not available 04/13/2023 Do You Have Difficulty Walking Or Climbing Stairs? Yes MIGRATION.0301 [id number] Information not available 09/22/2022 Do You Have Any Dietary Restrictions? No MIGRATION.0301 954531 Information not available 09/22/2022 Sex: Unknown Functional Status Question Answer Note LastModified by Organizat ion Details LastModified Time Do you use any illicit or recreational drugs? No MIGRATION.87355 36530 Information not available 09/22/2022 Do you or have you ever used any other forms of tobacco or nicotine? No MIGRATION.99636 15655 Information not available 09/22/2022 What is your level of alcohol consumption? None MIGRATION.76369 47185 Information not available 09/22/2022 Are you currently employed? Yes [email or web address] Information not available 08/02/2024 Do you have transportation difficulties? Yes Patient does not drive. MIGRATION.35225 12866 Information not available 09/22/2022 Are you able to walk? YESWOREST MIGRATION.11429 33105 Information not available 09/22/2022 Do you have difficulty doing errands alone? Yes Patient can not walk long distances. MIGRATION.77681 01615 Information not available 09/22/2022 Are you able to care for yourself? 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 No MIGRATION.30626 48581 Information not available 09/22/2022 What is your exercise level? None [email or web address] Information not available 08/02/2024 Mental Status Question Answer Note LastModified by Organizat ion Details LastModified Time Do you feel stressed (tense, restless, nervous, or anxious, or unable to sleep at night)? [id number] MIGRATION.[id number] 26 Information not available 09/22/2022 Do you have difficulty concentrating, remembering or making decisions? No MIGRATION.[id number] 26 Information not available 09/22/2022 Family History Relationship Description Onset Age of this Age Resolved Age Notes LastModified by Organization Details LastModified Time Mother Diabetes mellitus 69 MIGRATION.061 [id number] Not available 09/22/2022 13:30:12 Mother Heart disease 69 MIGRATION.144 [id number] Not available 09/22/2022 13:30:12 Brother Myocardial infarction 74 MIGRATION.570 [id number] Not available 09/22/2022 13:30:12 Sister Mesothelioma (malignant, clinical disorder) MIGRATION.074 [id number] Not available 09/22/2022 13:30:12 Medical History Condition Response STROKE/TIA Y Gynecological HistoryNo gynecological history recorded. Obstetrics History GPAL:G 0 P 0 0 0 0 Immunizations Vaccine Type Date Status Note Provider Nam e and Address Organization Details Recorded Time RSV, recombinant, protein subunit RSVpreF, adjuvant reconstituted, 0.5 mL, PF 4 completed Karena agrawal, [place] - [facility] 08/14/2024 11:04:49 Tdap 3 completed Karena agrawal, [place] - [facility] 08/14/2024 11:05:08 Influenza, high-dose, quadrivalent, PF 3 completed Ariel Boston MD [address] [place] [address], [address], [place], [address], [facility] 06/23/2023 15:16:36 Pneumococcal conjugate PCV 13 8 completed Not Available [facility] 09/22/2022 13:32:42 pneumococcal polysaccharide PPV23 6 completed Not Available [facility] 09/22/2022 13:32:42 COVID-19, mRNA, LNP-S, PF, 30 mcg/0.3 mL dose 1 completed Not Available [facility] 09/22/2022 13:32:42 COVID-19, mRNA, LNP-S, PF, 30 mcg/0.3 mL dose 1 completed Not Available [facility] 09/22/2022 13:32:42 Influenza, split virus, quadrivalent, preservative 0 completed Not Available [facility] 09/22/2022 13:32:42 Influenza, high-dose, quadrivalent, PF 2 completed Not Available [facility] 09/22/2022 13:32:43 Influenza, high-dose, quadrivalent, PF 1 completed Not Available [facility] 09/22/2022 13:32:43 Past Encounters Encounter ID Performer Location Encounter Start Date Encounter Closed Date Diagnosis/Indication Diagnosis SNOMED-CT Code Diagnosis ICD10 Code Diagnosis Note [id number] Ariel Boston MD [facility] Internal Med [address] [facility] [place] [address] 12/11/2020 00:00:00 12/11/2020 16:41:12 [id number] Ariel Boston MD [facility] Internal [address] [place] [address] 05/14/2021 00:00:00 05/14/2021 12:14:11 [id number] Ariel Boston MD J[facility] Internal Med [address] [facility] [place] [address] 09/04/2021 00:00:00 09/04/2021 09:24:37 [id number] Ariel Boston MD S_[facility] Internal Med [address] [facility] [place] [address] 09/16/2021 00:00:00 09/16/2021 10:11:09 [id number] Maxwell torres MD [facility] [address] [place] [address] 09/28/2021 00:00:00 09/29/2021 18:05:06 [id number] MD CHIKI Flores_[facility] Internal Med [address] [facility] [place] [address] 10/19/2021 00:00:00 10/19/2021 15:08:42 [id number] MD CHIKI Flores_[facility] Internal [address] [facility] [facility] [place] [address] 01/11/2022 00:00:00 01/11/2022 14:33:42 [id number] MD CHIKI Flores_[facility] Internal Med [address] [place] [address]. [place] [address] 02/10/2022 00:00:00 02/10/2022 15:38:22 [id number] MD CHIKI Flores_[facility] Internal [address] [facility] [facility] [place] [address] 02/23/2022 00:00:00 02/23/2022 16:13:32 [id number] MD CHIKI Flores_[facility] Internal Med [address] [place] [address] 03/17/2022 00:00:00 03/17/2022 10:46:32 [id number] MD CHIKI Flores_[facility] Internal [address] [facility] [facility] [place] [address] 04/01/2022 00:00:00 04/01/2022 10:28:31 [id number] MD CHIKI Flores_[facility] Internal [address] [facility] [place] [address] 06/10/2022 00:00:00 06/10/2022 13:07:23 [id number] Ariel Boston MD [facility] Internal Med [address] [facility] [place] [address] 08/05/2022 00:00:00 08/05/2022 11:28:38 [id number] Ariel Boston MD [facility] Internal Med [facility] [address] [facility] [place] [address] 08/19/2022 00:00:00 08/19/2022 10:13:13 [id number] Ariel Boston MD [facility] Internal [facility] [address] [facility] [place] [address] 10/13/2022 11:58:24 10/13/2022 12:42:49 Postherpetic neuralgia 8877760 B02.29 pain is under control with meds Osteoporosis 90692784 M8 1.0 on meds, needs dexa Vitamin D deficiency 347 83708 E55.9 otc Migraine 13135601 G43.90 9 better with meds Gastroesop hageal reflux disease 941085922 K21.9 s/p EGD 01/07, Smoker 83777687 F17.200 advised to quit Anxiety 81437965 F41.9 under control with meds Cerebrovas cular accident 991845643 I63.9 improved , NO WEAKNESS Hyperlipidemia 93672489 E78.5 under control Essential hypertension 92550479 I10 under control Adult [facility] th examination 222167146 Z00.00 had colonoscop y 01/07 per hermammogr am - 12/2020 , was ordereddex a 08/17/19 , was orderedpre vnar 13 04/12/18Pne umovax 23- 03/16/16LDC T- 12/2020FLU - 2COV ID Vacc- 07/28/2020 & 08/18/2020 [id number] Ariel Boston MD [facility] Internal Med [facility] [address] [facility] [place] [address] 01/26/2023 14:51:13 01/26/2023 15:09:02 Upper respiratory infection 02943247 J06.9 [id number] Ariel Boston MD [facility] Internal [facility] [address] [facility] [place] [address] 02/14/2023 15:42:55 02/14/2023 17:01:58 Postherpetic neuralgia 2845083 B02.29 pain is under control with meds Osteoporosis 32485831 M8 1.0 on meds, Vitamin D deficiency 347 62673 E55.9 otc Migraine 72034608 G43.90 9 better with meds Gastroesop hageal reflux disease 929957942 K21.9 s/p EGD 01/07, Anxiety 99146353 F41.9 under control with meds Cerebrovas cular accident 676823122 I63.9 improved , NO WEAKNESS Hyperlipidemia 48945497 E78.5 under control Essential hypertension 22911953 I10 under control Adult heal th examination 701198230 Z00.00 had colonoscop y 01/07 per hermammogr am - 12/2020 , was ordereddex a 08/17/19 , was orderedpre vnar 13 04/12/18Pne umovax - 03/16/16LDC T- 12/2020FLU 2COV ID Vacc- 07/28/2020 & 08/18/2020 Anterior epistaxis 80431 4002 R04.0 stop using Fluticason e, use saline spray [id number] Ariel Boston MD [facility] Internal [address] [facility] [place] [address] 04/13/2023 14:15:26 04/13/2023 15:15:00 Adult health examination 289247001 Z00.00 had colonoscop y 01/07 per hermammogr am - 12/2020 , was ordereddex a 08/17/19 , was orderedpre vnar 13 04/12/Pne umovax 23- 03/16/16LDC T- 12/2020FLU - 2COV ID Vacc- 07/28/2020 & 08/18/2020 Screening for disorder 413673754 Z13.9 Feeling of lump in throat 998279550 F45.8 Anemia 448191646 D64.9 [id number] Ariel Boston MD [facility] Internal Med [address] [place] [address] 06/23/2023 14:32:22 06/23/2023 15:19:14 Adult health examination 288476390 Z00.00 had colonoscop y 01/07 per hermammogr am - 12/2020 , was ordereddex a 08/17/19 , was orderedpre vnar 13 04/12/18Pne umovax 23- 03/16/16LDC T- 12/2020FLU - OV ID Vacc- 07/28/2020 & 08/18/2020 Anemia 814097595 D64.9 Postherpet ic neuralgia 8525379 B02.29 pain is under control with meds Osteoporosis 45861363 M8 1.0 on meds, Vitamin D deficiency 347 40700 E55.9 otc Migraine 50318081 G43.90 9 better with meds Gastroesop hageal reflux disease 061200568 K21.9 s/p EGD 01/07, Anxiety 32825351 F41.9 under control with meds Cerebrovas cular accident 773512634 I63.9 improved Hyperlipidemia 80925153 E78.5 under control Essential hypertension 12994233 I10 not under control Itching of skin 73187056 0 L29.9 Administra tion of influenza vaccine 45505288 Z23 Screening mammography 24 931950 Z12.31 Screening for osteoporosis 747968634 Z13.820 Ex-smoker 4425993 Z87.89 1 Eruption 343630048 R21 [id number] Ariel Boston MD [facility] Internal Med [address] [place] [address] 10/10/2023 15:24:01 10/10/2023 15:52:52 Viral gastroenteritis 463378135 A08.4 [id number] Ariel Boston MD [facility] Internal Med [address] [place] [address] 01/31/2024 14:00:43 01/31/2024 14:31:51 Abdominal pain 33726345 R10.9 improved Constipation 54743064 K5 9.00 water, fiber Essential hypertension 23061664 I10 not under control , will recheck in 3 weeks [id number] Ariel Boston MD [facility] Internal Med [address] [place] [address] 08/02/2024 14:29:55 08/02/2024 15:43:36 Hyperlipidemia 32958338 E78.5 under control Adult heal th examination 336902048 Z00.00 had colonoscop y 01/07 per hermammogr am - 12/2020 , was ordereddex a 08/17/19 , was orderedpre vnar 13 04/12/18Pne umovax 23- 03/16/16LDC T- 12/2020FLU - 05/2022,20 OVID Vacc- 07/28/2020 & 08/18/2020 Anemia 694611904 D64.9 Postherpet ic neuralgia 1939165 B02.29 pain is under control with meds Osteoporosis 76799418 M8 1.0 on meds, Vitamin D deficiency 347 40493 E55.9 otc Migraine 30986798 G43.90 9 better with meds Gastroesop hageal reflux disease 947636019 K21.9 s/p EGD 01/07, Anxiety 29731012 F41.9 under control with meds Cerebrovas cular accident 458350326 I63.9 improved Itching of skin 13339307 0 L29.9 Ex-smoker 7216732 Z87.89 1 Cigarette smoker 6505411 7 F17.471 [id number] Myron Rose DPM [facility] Pod[facility] [place] [address] [place] [address] 08/13/2024 14:53:48 2024 13:23:50 Pain of toes of bilateral feet 8221301838 4054282 M79.674 M79.675 bilateral great toenails Dystrophia unguium 70411 009 L60.3 bilateral great toenailstr eatment options reviewedna ils debrided without incident new line patient will return for total nail avulsion procedure both great toenails for total nail avulsion [id number] Myron [facility] DPM [facility] [place] [address] [facility] [address] [place] [address] 08/23/2024 14:20:37 10/17/2024 09:57:58 Dystrophia unguium 11293275 L60.3 bilateral great toenails- total nail avulsion performed todaytreat ment options reviewedre viewed wound care and dressing change- performed dailymonit or for signs of infection present seek medical attention immediatel yFollow-up in 1 week [id number] Ariel Boston MD [facility] Internal Med [address] [place] [address] 08/29/2024 14:44:22 08/29/2024 15:19:15 Eruption 396480982 R21 [id number] Myron Rose DPM [facility] [address] [place] [address] 09/12/2024 15:10:00 09/12/2024 16:23:52 Dystrophia unguium 29027921 L60.3 bilateral great toenails- total nail avulsion healedRx ketoconazo le- apply daily toenail bedfollow- up 3 months [id number] Ariel Boston MD Jocelin_[facility] Internal Med [address] [place] [address] 12/31/2024 15:16:00 12/31/2024 16:04:55 Preoperative state 96914462 Z01.818 getting pre op testing at [place] tomorrowne eds EKG and labs , will get results otherwise low risk Health Concerns Section Related Observation LastModified by Organization Detai ls LastModified Time None Recorded Concern Status LastModified by Organization Details LastModified Time None Recorded Advance Directives Directive N: Payers Insurance Date Sequence Insurance Name Policy Number Policy Graham Covered Member ID Graham Member ID Guarantor Name 08/29/2024 2 [place] WHEN MEDICARE OR MEDICARE REPLACEMENT PRIMARY) Joie Holloway [id number] Joie Holloway 12/31/2024 1 [employer] (MEDICARE REPLACEMENT/A DVANTAGE - PPO) [id number] Joie Holloway [id number] Joie Holloway 08/29/2024 3 [facility] (MEDICARE REPLACEMENT/A DVANTAGE - HMO) Joie Miramontes Holloway [id number] Joie Miramontes Holloway 08/29/2024 1 [employer] (MEDICARE REPLACEMENT/A DVANTAGE - HMO) [id number] Joie Miramontes Holloway [id number] Joie Miramontes Holloway 08/29/2024 1 [facility] (MEDICARE REPLACEMENT/A DVANTAGE - HMO) [id number] Joie Miramontes Holloway [id number] Joie Miramontes Holloway 12/31/2024 1 [employer] (MEDICARE REPLACEMENT/A DVANTAGE - PPO) Joie Miramontes Holloway [id number] Joie Miramontes Holloway Notes Date Note Type Note Provider Name and Address Organization Details Recorded Time 08/13/2024 text/html . Patient is a 78-year-old female she presents with complaints of thickened great toenails. Patient states she has difficulty cutting them she also has pain to these nails. Patient denies any treatment for the condition. 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 Patient states when she is not in shoe gear and not walking she does not have any pain to the foot. Patient denies any other complaints. Myron Rose DPM [address], [place], [address], [employer] 08/14/2024 09:28:40 08/23/2024 text/html . Patient is a 79-year-old female she returns the office for an office procedure. Patient understands all risks, benefits, complications of planned procedure and elects to continue. Patient denies any other complaints. Myron Rose DPM [address], [place], [address], [employer] 09/17/2024 14:13:55 08/29/2024 text/html Pt is here today for right sided face pain that has been going on for few months. Red and swollen in appearance. It is making her have radiating headaches from time to time. No ear pain.Pt is have glaucoma surgery on the 17 of this month and was getting worried bout the pain. Pt is not fasting.. Ariel Boston MD [address], [place], [address], [employer] [facility] 08/29/2024 15:15:49 09/12/2024 text/html . Patient is a 79-year-old female who returns the office for follow-up on bilateral great toenail avulsions she is completely healed she is doing well she denies any pain or signs of infection to the toes. Patient is happy with the outcomes currently. Patient denies any other complaints. Myron Rose DPM [address], [place], [address], [employer] [facility] 09/12/2024 15:53:56 12/31/2024 text/html Pt is here [...] dexa 08/13,Meds- alendronate 70 mg qd Ariel Boston MD [address], [place], [address], [employer] [facility] 12/31/2024 15:38:07 OBGyn Episode No OBEpisode recorded.
--- NOTE | 2025-01-04 07:08 | PM.IMHP ---
H&P: HPI History of Present Illness Date/Time: 01/04/25 07:08 Chief Complaint: Left side nasal blockage PMFSH Past Medical History Medical History (Updated 11/12/24 @ 13:41 by Raul Quintero MD) Chronic frontal sinusitis Nasal cavity polyp Chronic ethmoidal sinusitis Deviated nasal septum Polyp of nasal sinus History of shingles History of stroke (~2021) History of heart attack Family History Family History Father Heart disease Mother Diabetes mellitus Grandparent Heart disease Social History Social History Social History: Caffeine-coffee Smoking packs per day: 1.5 Smoking cigarettes per day: 30.0 Years smoked: 60 Smoking pack-years: 90.00 Smoking status: Never smoker Smoking end date: 01/22/19 Alcohol intake: never Substance use: never Substance use type: does not use Do You Feel Safe in your Home?: Yes Lack of Transportation: No Lack of Food: Never True Concerned About Future Housing: No Difficulty Paying Gas/Electric Bills: No Difficulty Paying for Meds: No Currently Unemployed: No Education: High School Diploma/GED Difficulty w/ Childcare or Family Care: No Living arrangements: alone Additional living arrangements comments: [id number] Occupation/Education: occupation 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 Gender identity (if verbalized by the patient): Female Spiritual care concerns: No Agree to blood products: Yes Meds Home Medications and Allergies Home Medications ?Medication ?Instructions ?Recorded ?Confirmed ?Type alendronate 70 mg tablet 70 mg PO WEEKLY 10/08/24 12/26/24 History amitriptyline 25 mg tablet 25 mg PO HS 10/08/24 12/26/24 History atorvastatin 40 mg tablet (Lipitor) 40 mg PO DAILY 10/08/24 12/26/24 History clopidogrel 75 mg tablet 75 mg PO DAILY 10/08/24 12/26/24 History ferrous sulfate 325 mg (65 mg 325 mg PO DAILY 10/08/24 12/26/24 History iron) tablet gabapentin 300 mg capsule 300 mg PO TID 10/08/24 12/26/24 History hydroxyzine HCl 10 mg tablet 10 mg PO TID PRN anxiety 10/08/24 12/26/24 History mirtazapine 30 mg tablet 30 mg PO DAILY 10/08/24 12/26/24 History olmesartan 5 mg tablet 5 mg PO DAILY 10/08/24 12/26/24 History pantoprazole 40 mg tablet,delayed 40 mg PO QAM 10/08/24 12/26/24 History release simvastatin 40 mg tablet 40 mg PO DAILY 10/08/24 12/26/24 History methylprednisolone 4 mg tablets in See Rx Instructions PO PER PKG DIR 11/12/24 12/26/24 Rx a dose pack (Medrol (Dangelo)) #21 ea acetaminophen 500 mg tablet 500 mg PO Q6H PRN pain 12/26/24 12/26/24 History (Acetaminophen Extra Strength) brimonidine 0.2 % eye drops 1 drp RIGHT EYE BID 12/26/24 12/26/24 History cyclopentolate 1 % eye drops 1 drp RIGHT EYE BID 12/26/24 12/26/24 History dorzolamide 2 % eye drops 1 drp RIGHT EYE BID 12/26/24 12/26/24 History doxycycline hyclate 100 mg capsule 100 mg PO Q24H 12/26/24 12/26/24 History Allergies Allergy/AdvReac Type Severity Reaction Status Date / Time No Known Allergies Allergy Verified 12/26/24 10:14 Assessment and Plan Assessment and plan (1) Polyp of nasal sinus: Code(s): J33.8 - Other polyp of sinus Status: Acute (2) Deviated nasal septum: Code(s): J34.2 - Deviated nasal septum Status: Acute (3) Chronic ethmoidal sinusitis: Code(s): J32.2 - Chronic ethmoidal sinusitis Status: Acute (4) Nasal cavity polyp: Code(s): J33.0 - Polyp of nasal cavity Status: Acute (5) Chronic frontal sinusitis: Code(s): J32.1 - Chronic frontal sinusitis Status: Acute Plan [address] [address] Raul Quintero M.D. Otolaryngology Office Visit Signed Patient: Joie Holloway MR#: [id number] : 1945 Acct:[id number] Age: 79 Date of Service: 11/12/24 cc: ~ HPI HPI Comments Details: 79-year-old female with left nasal blockage coming for follow-up. Patient has used topical nasal sprays since last visit without any improvement. She still has left-sided nasal blockage that has been going on for many years Patient underwent CT scanning and came to review the results [facility] Medical History (Updated 11/12/24 @ 13:41 by Raul Quintero MD) Chronic frontal sinusitis Nasal cavity polyp Chronic ethmoidal sinusitis Deviated nasal septum Polyp of nasal sinus History of shingles History of stroke (~2021) History of heart attack Family History Father Heart diseaseMother Diabetes mellitusGrandparent Heart disease Social History Social History: Caffeine-coffee Smoking status: Never smoker Alcohol intake: never Substance use: never Substance use type: does not use Do You Feel Safe in your Home?: Yes Lack of Transportation: No Lack of Food: Never True Concerned About Future Housing: No Difficulty Paying Gas/Electric Bills: No Difficulty Paying for Meds: No Currently Unemployed: No Education: High School Diploma/GED Difficulty w/ Childcare or Family Care: No Living arrangements: alone Occupation/Education: occupation 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 BMI 17.5 BP 122/64 Blood Pressure Location Rt brachial Position Sitting Respiration 16 Pulse 64 Pulse Source Palpation Temp 36.5 C Temp Source Tympanic Visit Reasons: Sinusitis Punch Box Tender Required: No Patient?s sex assigned at : Female Accompanied by: Self / Same As Patient Is patient in pain?: No Is last menstrual period known: No Patient : No : No Post menopausal: Yes Patient receiving dialysis services?: No Is patient in hospice?: No Allergies/Adverse Reactions No Known Allergies Allergy (Verified 11/12/24 12:58) Medication Reconciliation alendronate 70 mg tablet 70 mg PO WEEKLY 10/08/24 [History Confirmed 11/12/24] amitriptyline 25 mg tablet 25 mg PO DAILY 10/08/24 [History Confirmed 11/12/24] atorvastatin 40 mg tablet (Lipitor) 40 mg PO DAILY 10/08/24 [History Confirmed 11/12/24] clopidogrel 75 mg tablet 75 mg PO DAILY 10/08/24 [History Confirmed 11/12/24] ferrous sulfate 325 mg (65 mg iron) tablet 325 mg PO DAILY 10/08/24 [History Confirmed 11/12/24] fluticasone propionate 50 mcg/actuation nasal spray,suspension (Allergy Relief (fluticasone)) 2 spray intranasal DAILY 10/08/24 [History Confirmed 11/12/24] gabapentin 300 mg capsule 300 mg PO TID 10/08/24 [History Confirmed 11/12/24] hydroxyzine HCl 10 mg tablet 10 mg PO TID PRN 10/08/24 [History Confirmed 11/12/24] mirtazapine 30 mg tablet 30 mg PO DAILY 10/08/24 [History Confirmed 11/12/24] olmesartan 5 mg tablet 5 mg PO DAILY 10/08/24 [History Confirmed 11/12/24] pantoprazole 40 mg tablet,delayed release 40 mg PO QAM 10/08/24 [History Confirmed 11/12/24] simvastatin 40 mg tablet 40 mg PO DAILY 10/08/24 [History Confirmed 11/12/24] Do you need a note to return to daycare/school/sports/work: No Preferred pharmacy verified?: Yes Exam Exam Const General: cooperative, healthy appearing, comfortable, no acute distress, alert, awake and diaphoretic HENMT Head: normocephalic and atraumatic Ears: external ears normal and EAC's normal Face/Nose/Sinus: Normal external nose present and Normal nares present Mouth: Normal oral and palatal mucosa present and lip normal Other: right-sided deviated nasal septum and left-sided nasal polyp Eyes General: appearance normal, both eyes and all related structures Neck General: Yes normal visual inspection Resp Effort/Inspection: normal respiratory effort and able to speak in complete sentences Assessment & Plan (1) Chronic ethmoidal sinusitis: Code(s): J32.2 - Chronic ethmoidal sinusitis Category: Medical (2) Deviated nasal septum: Code(s): J34.2 - Deviated nasal septum Category: Medical (3) Polyp of nasal sinus: Code(s): J33.8 - Other polyp of sinus Category: Medical (4) Nasal cavity polyp: Code(s): J33.0 - Polyp of nasal cavity Category: Medical (5) Chronic frontal sinusitis: Code(s): J32.1 - Chronic frontal sinusitis Category: Medical (6) Chronic maxillary sinusitis: Code(s): J32.0 - Chronic maxillary sinusitis (7) Hypertrophy of nasal turbinates: Code(s): J34.3 - Hypertrophy of nasal turbinates Plan 79-year-old female with left chronic sinusitis, deviated nasal septum and hypertrophy of nasal turbinates CT scan results were discussed with the patient : 1. Moderate mucosal thickening of the left frontal, ethmoid, maxillary and right sphenoid sinuses with polypoid soft tissue involving the ethmoid sinus. Findings suggest chronic sinusitis with possible underlying polyps. 2: Ostiomeatal unit on the left is not well visualized, possibly postsurgical or related to erosive destruction. 3: Cortical thickening with increased trabeculation involving the left orbit, maxillary sinus and zygomatic arch. Differential diagnosis includes postsurgical or posttraumatic change versus chronic inflammatory change secondary to sinusitis. Differential diagnosis includes Paget's disease. will order Septoplasty-bilateral inferior turbinate submucous resection -bilateral outfracture of inferior turbinates-left complete ethmoidectomy-left maxillary antrostomy-left frontal sinuotomy -Risk of septoplasty procedures were discussed with the patient which include but not limited to; Bleeding, infection, septal perforation, saddle nose deformity, intranasal scarring -Risks for sinus surgery: injury to the skull base, injury to the eye, need for further surgery. Risk of recurrent disease is also discussed. All the questions were answered to the best of my ability and the patient wished to proceed. The procedures will be scheduled in a timely fashion.
--- NOTE | 2025-01-04 07:08 | WPDHPUPDATE1 ---
History and Physical Update Update Date/Time: 01/04/25 07:08 History and Physical has been reviewed, including an updated exam of the patient. There are NO changes in the patient's condition. Risks, benefits, and alternatives have been discussed and questions answered. Patient agrees to proceed with procedure.
[2025-01-04] MEDS: ACETAMINOPHEN 500 MG TABLET 1000 MG PO (08:25)
[2025-01-04] MEDS: LACTATED RINGERS 1,000 ML 30 ML IV CONT ×2 (08:30→14:15)
[2025-01-04] MEDS: OXYMETAZOLINE HCL 0.05% NAS 15 ML BTL (*BKC) 2 SPRAY NASAL ×3 (08:55→09:05)
--- NOTE | 2025-01-04 09:00 | WPDANESEPPF ---
Anes - Initial Pre Proc Eval Procedure: Operation Date: 01/04/25 10:00 Proposed Procedures p Bilateral Inferior Turbinate Submucous Resection, Bilateral Outfracture Inferior Turbinate, Left Complete Ethmoidectomy, Left Maxillary Antrostomy, Frontal Sinusotomy with Balloon Dilatation - Raul Quintero MD s Septoplasty - Raul Quintero MD Date/Time: 01/04/25 09:00 Surgeon: Raul Quintero MD Pre Op Diagnosis: chronic ethmoidal sinusitis, deviated nasal septum Patient Data Age: 79 Gender: F Height: 1.66 m Weight: 46.6 kg Last Vital Signs Temp 36.1 C L 01/04/25 08:16 Pulse 68 01/04/25 08:16 Resp 18 01/04/25 08:16 BP 158/79 H 01/04/25 08:16 Pulse Ox 100 01/04/25 08:16 O2 Del Method Room Air 01/04/25 08:16 Allergies Allergy/AdvReac Type Severity Reaction Status Date / Time No Known Allergies Allergy Verified 12/26/24 10:14 Home Medications ?Medication ?Instructions ?Recorded ?Confirmed ?Type alendronate 70 mg tablet 70 mg PO WEEKLY 10/08/24 01/04/25 History amitriptyline 25 mg tablet 25 mg PO HS 10/08/24 01/04/25 History atorvastatin 40 mg tablet (Lipitor) 40 mg PO DAILY 10/08/24 01/04/25 History clopidogrel 75 mg tablet 75 mg PO DAILY 10/08/24 01/04/25 History ferrous sulfate 325 mg (65 mg 325 mg PO DAILY 10/08/24 01/04/25 History iron) tablet gabapentin 300 mg capsule 300 mg PO TID 10/08/24 01/04/25 History hydroxyzine HCl 10 mg tablet 10 mg PO TID PRN anxiety 10/08/24 12/26/24 History mirtazapine 30 mg tablet 30 mg PO DAILY 10/08/24 01/04/25 History olmesartan 5 mg tablet 5 mg PO DAILY 10/08/24 01/04/25 History pantoprazole 40 mg tablet,delayed 40 mg PO QAM 10/08/24 01/04/25 History release simvastatin 40 mg tablet 40 mg PO DAILY 10/08/24 01/04/25 History methylprednisolone 4 mg tablets in See Rx Instructions PO PER PKG DIR 11/12/24 01/04/25 Rx a dose pack (Medrol (Dangelo)) #21 ea acetaminophen 500 mg tablet 500 mg PO Q6H PRN pain 12/26/24 12/26/24 History (Acetaminophen Extra Strength) brimonidine 0.2 % eye drops 1 drp RIGHT EYE BID 12/26/24 01/04/25 History cyclopentolate 1 % eye drops 1 drp RIGHT EYE BID 12/26/24 01/04/25 History dorzolamide 2 % eye drops 1 drp RIGHT EYE BID 12/26/24 01/04/25 History doxycycline hyclate 100 mg capsule 100 mg PO Q24H 12/26/24 01/04/25 History Patient hx anesthesia problems: none Family hx anesthesia problems: none Results Review: All pre-operative results and documents have been reviewed as part of the pre-operative evaluation. [facility] Past Medical History Medical History Chronic frontal sinusitis Nasal cavity polyp Chronic ethmoidal sinusitis Deviated nasal septum Polyp of nasal sinus History of shingles History of stroke (~2021) History of heart attack Family History Family History Father Heart disease Mother Diabetes mellitus Grandparent Heart disease Social History Social History Social History: Caffeine-coffee Smoking packs per day: 1.5 Smoking cigarettes per day: 30.0 Years smoked: 60 Smoking pack-years: 90.00 Smoking status: Never smoker Smoking end date: 01/22/19 Alcohol intake: never Substance use: never Substance use type: does not use Do You Feel Safe in your Home?: Yes Lack of Transportation: No Lack of Food: Never True Concerned About Future Housing: No Difficulty Paying Gas/Electric Bills: No Difficulty Paying for Meds: No Currently Unemployed: No Education: High School Diploma/GED Difficulty w/ Childcare or Family Care: No Living arrangements: alone Additional living arrangements comments: [id number] Occupation/Education: occupation 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 [employer] Gender identity (if verbalized by the patient): Female Spiritual care concerns: No Agree to blood products: Yes Anes - Eval Final PreProcedure Day of Procedure 01/04/25 09:00 Patient weight: thin Heart: regular rate and rhythm Lungs: clear to auscultation Airway: Mallampati scale class II Neurological: alert and oriented Last oral intake: >/= 8 hours ASA classification: III Emergent: no Anesthetic plan: proceed Anesthesia type and monitoring: general ETT and standard monitoring Results Review: All pre-operative results and documents have been reviewed as part of the pre-operative evaluation. Informed Consent: The patient's anesthetic plan and its attendant risks and benefits were discussed with the patient/family/POA. Questions were solicited and answers provided to the satisfaction of the patient/family/POA.
[2025-01-04] MEDS: ceFAZolin 1 GM/NS 50 ML 1 GM/50 ML BAG IVPB (10:36)
[2025-01-04] MEDS: COCAINE HCL (*CRX) 4% TOP SOLN 4 ML VIAL 1 APPLIC TOPICAL (10:59)
--- NOTE | 2025-01-04 12:15 | S_PTH ---
PATIENT: Joie Holloway LOC: [facility] U#:[id number] AGE/SX: 79/F ROOM: RE01/04/[address]: Raul Quintero MD : 1945 BED: DIS: 01/04/2025 SPEC #: [id number] RECD: 01/07/25 07:50 STATUS: LEAH REQ #: [id number] [place]: 01/04/25 12:[address]: Raul Quintero DEPT: [facility] Surgical RECD BY: Khalida Bertrand ENTERED: 01/07/25 07:51 SP TYPE: Surgical OTHR DR: Ariel HongMD Tissues: A - Sinus Contents B - Sinus Contents C - Sinus Contents Procedures: Hematoxylin and Eosin Stain Gross and Microscopic Level 4
[2025-01-04] MEDS: TRIAMCINOLONE ACET INJ 40 MG/ML VIAL IM (13:46)
[2025-01-04] MEDS: LIDO 1%/EPINEPHRINE 1:100,000 20 ML VIAL 30 ML INFILTRATE (13:59)
--- NOTE | 2025-01-04 14:14 | P.OP_ITS ---
Procedure Note - Detailed Date of Procedure 01/04/25 Pre-op Diagnosis chronic sinusitis-septal deviation -bilateral inferior turbinate hypertrophy Post-op Diagnosis Same Procedure Performed Septoplasty+bilateral inferior turbinate reduction using monopolar cautery +left side maxillary antrostomy + left-sided complete ethmoidectomy+ left-sided frontal sinuotomy with balloon dilation Surgeon Raul Quintero MD Anesthesia General Indications Left-sided nasal blockage-chronic sinusitis-deviated nasal septum-hypertrophy of nasal turbinates Description of Procedure DESCRIPTION OF PROCEDURE: The patient was seen in the preoperative area, informed consent was checked and confirmed. The patient was taken to the operating room, sedated and placed under general anesthesia with an endotracheal tube . Eyes were taped and were prepped and draped in the usual sterile fashion. The nose was examined, and the left anterior septum was injected with 1% lidocaine with 1:100,000 epinephrine. [place] incision was made and a mucoperichondrial flap was elevated to expose the quadrangular cartilage and bony septum. Incision was then made anteriorly on the quadrangular cartilage to elevate the contralateral mucoperichondrial flap. The deviated quadrangular cartilage was excised with a Heber knife. At least 1 cm of dorsal and caudal strut of quadrangular was left in place. We resected the deviated bony septum with a Joppa-Velasquez and a pituitary forceps. After adequate resection of the posterior-inferior bony septum, the mucoperichondrial Flap was laid back in anatomic position.04 vicryl was used to suture back the incsion We proceeded to the endoscopic sinus procedure starting on the left side. The agger nasi area was injected with 1% lidocaine with 1:100,000 epinephrine. The body of the middle turbinate was injected with 1% lidocaine with 1:100,000 epinephrine. The middle turbinate was gently medialized and the uncinectomy was performed with a pediatric Camilo backbiter and the uncinectomy was completed with a shaver from the inferior-posterior attachment to the superior anterior attachment. The ethmoidectomy was performed by shaving the anterior ethmoid bulla and care was taken to protect the skull base in the lamina papyracea. Maxillary antrum was re-examined with a 30-degree scope. A ball probe was passed into the antrum and was further widened with a backbiter in the anterior- inferior aspect.left posterior ethmoidectomy was done through the inferio- medial quadrant of basal lamella ,posterior ethmoid cells were removed from anterior to posterior direction and from inferior to superior taking care to preserve skull base and lamina papyracea.then ,lateralization of the middle turbinate and shaving,opening of the posterior corridor and shaving the therapeutic activities services worker ior part of the middle turbinate to widen the superior meatus Agger Nasi cells on left were opened with the shaver and 30-degree scope. Frontal sinus ostium was identified with lighted guidewire. Then the balloon was passed into the frontal sinus and the ostia was adequately dilated. Shaver was used to debride excess tissue to clear the frontal recess. We proceeded with inferior turbinate reduction, starting on the right side, mono polar cautery needle on power 15 was used to cauterize the inferior turbinate submucosally in 2 passes , We proceeded to the left side. The residual bilateral inferior turbinates were then out fractured using Boies elevator. Pledgets were removed from ethmoid cavities, PosiSep X BAM Hemostat Dressing sponges were placed in ethmoid cavities bilaterally and infiltrated with a mixture of kenalog and cefazolin. The nose was then suctioned clean and at this point the care of the patient was then transferred to the anesthesiologist where the patient emerged from general anesthesia without complication. Estimated Blood Loss 15 (ml) Drains No Packing Yes (merocel packing +absorbable packing ) Pathology Yes Complications No immediate complications Condition Stable Disposition PACU [facility] Billing Surgery - Charge Forward: Surgery Billing
--- NOTE | 2025-01-04 14:28 | PM.OP ---
Procedure Note - Brief Procedure Note - Brief Date of procedure: 01/04/25 chronic ethmoidal sinusitis, deviated nasal septum Procedure performed: Septoplasty+ endoscpic sinus surgery+ bilateral inferior turbinate reduction Surgeon: Raul Quintero MD Anesthesia: GLMA Description of procedure: Septoplasty+ endoscpic sinus surgery+ bilateral inferior turbinate reduction Estimated blood loss (mL): 15 (ml) Packing: Yes (merocel packing+non absorbable packing ) Pathology: Yes Complications: No immediate complications Condition: Stable Disposition: PACU
[2025-01-04] MEDS: fentaNYL CITRATE INJ (*CRX) 100 MCG/2 ML VIAL 25 MCG IV PUSH (14:39)
[2025-01-04] MEDS: methylPREDNISolone SOD SUCC 40 MG VIAL 20 MG IM (15:10)
== END 2025-01-04 17:00 | disposition home or self-care (01) ==
PROVIDERS: PCP Internal Medicine; Visit Provider Otolaryngology Otolaryngology/Facial Plastic Surgery
PROC: (CPT 30520; principal; 2025-01-04 10:00)
PROC: (CPT 30520; 2025-01-04 10:00)
DX: J32.1 Chronic frontal sinusitis (principal); J32.2 Chronic ethmoidal sinusitis; J34.2 Deviated nasal septum; G89.18 Other acute postprocedural pain; I25.2 Old myocardial infarction; Z79.82 Long term (current) use of aspirin; Z79.02 Long term (current) use of antithrombotics/antiplatelets; Z87.891 Personal history of nicotine dependence; Z86.73 Personal history of transient ischemic attack (TIA), and cerebral infarction without residual deficits; Z82.49 Family history of ischemic heart disease and other diseases of the circulatory system
CPT/HCPCS: 30520; 30802; 31256; 31253; 36415; 85014; 85018; 87102; 87206; 88305; 93005; A9270; C1726; J0360; J0690; J1100; J1171; J2003; J2004; J2371; J2405; J2704; J2919; J3010; J3301; J7120